=== PATIENT | male | born 1985 | race Caucasian/White ===

== ENCOUNTER 2021-06-04 16:04 | Outpatient (CLI) | payer BC, SELFPAY ==
--- NOTE | 2021-06-04 16:11 | CT_ITS ---
INDICATION: CERVICAL LYMPHADENOPATHY EXAMINATION: CT NECK WITH CONTRAST - CT Soft Tissue Neck W/ Contrast Injection TECHNIQUE: Helically acquired images were obtained of the neck following IV contrast. A radiation dose optimization technique was used for this scan. IV Contrast dosage and agent: 100 mL of [id number]. COMPARISON: None. FINDINGS: NASOPHARYNX: Unremarkable. SUPRAHYOID NECK: Unremarkable oropharynx, oral cavity, parapharyngeal space, and retropharyngeal space. INFRAHYOID NECK: Unremarkable larynx, hypopharynx, and supraglottis. THYROID: No focal lesions. SALIVARY GLANDS: Unremarkable. LYMPH NODES: No cervical or supraclavicular lymphadenopathy. VASCULAR STRUCTURES: Unremarkable. VISUALIZED PORTIONS OF THE ORBITS, PARANASAL SINUSES, MASTOID AIR CELLS AND SKULL BASE: Unremarkable. BONES: Multilevel mild degenerative endplate changes with mild uncovertebral joint arthropathy at C3-4 and C4-5. No facet arthropathy. THORACIC INLET: Clear lung apices. CT/Soft Tissue Neck WITH Contrast IMPRESSION: Negative CT Neck with contrast. Electronically Signed: Siva Danielle DO at 21:06 EST ,
== END 2021-06-04 23:59 | disposition home or self-care (01) ==
PROVIDERS: Referring Provider Otolaryngology; Visit Provider Otolaryngology
DX: R59.0 Localized enlarged lymph nodes (principal)
CPT/HCPCS: 70491; Q9967

== ENCOUNTER 2025-03-27 16:17 | Emergency (ER) | payer BC, SELFPAY ==
[2025-03-27] VITALS (11 sets, daily range): BP systolic 117–135; BP diastolic 65–81; PULSE 60–95; RESP 12–22; TEMP 36.2; O2SAT 97–100; BMI 28.4
--- NOTE | 2025-03-27 17:01 | EDS_ITS ---
HPI History of Present Illness Chief Complaint: Head Injury Narrative Narrative: Chief complaint and HPI: 40-year-old male with no significant past medical history presents for evaluation of head injury and paresthesias. Patient states about an hour prior to arrival he accidentally hit the top of his head on a metal overhang. States that he did not have LOC but states that his whole body went numb and that he was unable to move for several seconds. Not on blood thinners. Was able to ambulate after the incident. Patient now endorsing paresthesias of the bilateral hands to the elbows with hypersensitivity. He denies any numbness/tingling throughout the rest of the body. He denies any weakness. He does endorse eating a edible gummy prior to arrival. He denies any vision/hearing changes, neck pain, shortness of breath, chest pain, nausea, vomiting, back pain. Review of systems: See HPI Medications: As listed on the chart Allergies: As listed on the chart PFSH: Per chart Vital signs: As listed on the chart. Reviewed. Physical exam: Gen: A&O x3, NAD Head: Normocephalic, atraumatic Eyes: No sclera icterus, conjunctiva clear, PERRL, EOMI without pain ENT: TMs clear BL, moist mucous membranes, no swelling/lacerations/blood in the mouth or the nares, No nasal septal hematoma, no facial tenderness Neck: Trachea midline, nontender, full range of motion CV: RRR, no murmurs, no chest wall TTP Resp: Lungs CTA BL, no w/r/c GI: Abd soft, non-distended, non-tender, no r/r/g Musc: Full ROM of all the extremities, no deformity, strength + 5/5 in all extremities including lone lead lineman strength-patient originally did not want to do lone lead lineman strength as he states that it worsens his hypersensitivity in his hands, sensation intact with dull and pinprick sensation throughout, he endorses hypersensitivity in the bilateral hands and forearms with touch-states it makes his paresthesias worse and describes it as burning, radial/DP/PT pulses +2 bilaterally, no midline spinal tenderness, no bony step-off Skin: Warm, dry, intact Neuro: Alert, oriented, GCS 15 Psych: Cooperative PFSH PFSH Medical History no medical history Home Medications Medication Instructions Recorded Last Taken Type methylprednisolone 4 mg tablets in See Rx Instructions PO .COMPLEX 03/28/25 Unknown Rx a dose pack (Medrol (Acosta)) #21 tabs Allergy/AdvReac Type Severity Reaction Status Date / Time No Known Allergies Allergy Verified 03/27/25 16:20 Social History Smoking Status: Never smoker EXAM Physical Exam Const Vital Signs: 03/27/25 16:18 03/27/25 16:35 03/27/25 17:17 Temperature 97.2 F L Temperature Source Temporal Pulse Rate 85 95 Respiratory Rate 22 H 17 Respiratory Effort Normal Non-Labored Respiratory Depth Normal Respiratory Pattern Normal Blood Pressure 117/81 H 131/65 H Blood Pressure Mean 93 87 Pulse Ox 100 98 Oxygen Delivery Method Room Air Room Air Room Air 03/27/25 18:00 03/27/25 18:00 03/27/25 19:00 Temperature Temperature Source Pulse Rate 65 65 64 Respiratory Rate 12 12 13 Respiratory Effort Respiratory Depth Respiratory Pattern Blood Pressure 128/71 H 128/71 H 127/69 H Blood Pressure Mean 90 86 86 Pulse Ox 100 100 100 Oxygen Delivery Method Room Air 03/27/25 19:30 03/27/25 20:00 03/27/25 20:15 Temperature Temperature Source Pulse Rate 70 66 71 Respiratory Rate 17 12 14 Respiratory Effort Respiratory Depth Respiratory Pattern Blood Pressure 133/76 H 135/74 H 123/72 H Blood Pressure Mean 92 89 86 Pulse Ox 99 99 99 Oxygen Delivery Method 03/27/25 20:30 03/27/25 20:45 03/27/25 21:00 Temperature Temperature Source Pulse Rate 64 65 70 Respiratory Rate 13 14 12 Respiratory Effort Respiratory Depth Respiratory Pattern Blood Pressure 125/74 H 133/79 H 135/78 H Blood Pressure Mean 87 96 92 Pulse Ox 98 97 98 Oxygen Delivery Method 03/27/25 23:22 Temperature Temperature Source Pulse Rate 60 Respiratory Rate 12 Respiratory Effort Respiratory Depth Respiratory Pattern Blood Pressure 134/75 H Blood Pressure Mean 94 Pulse Ox 100 Oxygen Delivery Method Room Air MDM MDM MDM Narrative Medical decision making narrative: 40-year-old male with no significant past medical history presents for evaluation of head injury and paresthesias. Patient states about an hour prior to arrival he accidentally hit the top of his head on a metal overhang. States that he did not have LOC but states that his whole body went numb and that he was unable to move for several seconds. Not on blood thinners. Was able to ambulate after the incident. Patient now endorsing paresthesias of the bilateral hands to the elbows with hypersensitivity. He denies any numbness/tingling throughout the rest of the body. He denies any weakness. He does endorse eating a edible gummy prior to arrival. Differential diagnosis includes but is not limited to intracranial bleed, fracture, contusion, concussion, arterial dissection, electrolyte abnormality, intoxication. Laboratory workup will be obtained including magnesium as well as urine drug screen. Will obtain imaging of the head and neck. CT head, cervical spine, CTA head and neck without any acute traumatic injury or abnormality. CBC with mild leukocytosis 11.3. No anemia. BMP unremarkable. Magnesium unremarkable. Urine drug screen positive for cannabis. Alcohol level unremarkable. On reevaluation, patient's clinical exam has not changed. Still endorsing the paresthesias and hypersensitivity therefore will reach out to neurosurgery at [facility] [place]. It was a while before we heard back from [facility] therefore I reached out to [facility]. I was able to discuss the patient with neurosurgeon, Dr. Porter. Recommended MRIs be performed. This was ordered. They will need to be called in. MRI of the cervical spine shows no traumatic injury to the cervical spine. Mild to moderate disc narrowing is noted throughout the cervical spine, moderate at C3-4. Endplate edema is noted at C3- 4. The cervical cord is normal in size and signal. CT of the thoracic spine shows small posterior disc protrusions at T7-8, T8-9, T9-10, and T11-12. Mild effacement of the ventral aspect of the cord at T9-10 and T11-12. Given findings, Dr. Porter with neurosurgery was consulted. He reviewed the imaging and patient was discussed. Recommended 60 mg steroids now and discharged home on Medrol Dosepak. Call his office on Monday. Patient confirmed understand the plan. Patient stable to discharge home. Educated on not combining ibuprofen with steroids. Okay for Tylenol. Return precautions explained. Impression: 1. Bilateral upper extremity paresthesias 2. Bilateral upper extremity hypersensitivity 3. Closed head injury 4. Chronic cervical and thoracic spinal stenosis Lab Data Labs: Laboratory Results - last 24 hr 03/27/25 03/27/25 17:05 17:15 WBC 11.3 H RBC 5.05 Hgb 14.9 Hct 43.7 MCV 86.5 MCH 29.5 MCHC 34.1 RDW Std Deviation 36.8 RDW Coeff of Alejandro 11.7 Plt Count 212 MPV 9.3 Immature Gran % (Auto) 0.400 Neut % (Auto) 75.9 H Lymph % (Auto) 16.5 L [place] % (Auto) 5.1 Eos % (Auto) 1.5 Baso % (Auto) 0.6 Absolute Neuts (auto) 8.6 H Absolute Lymphs (auto) 1.87 Nucleated RBC % 0 Sodium 138 Potassium 3.4 Chloride 101 Carbon Dioxide 24.5 Anion Gap 13 BUN 11 Creatinine 0.99 Estim Creat Clear Calc 114.08 Est GFR (MDRD) Non-Af 100 BUN/Creatinine Ratio 10.7 Glucose 136 H Calcium 9.1 Magnesium 1.5 Urine Opiates Screen NEGATIVE U Buprenorphine Qual NEGATIVE Ur Oxycodone Screen NEGATIVE Urine Methadone Screen NEGATIVE Urine Fentanyl Screen NEGATIVE Ur Barbiturates Screen NEGATIVE Ur Phencyclidine Scrn NEGATIVE Ur Amphetamines Screen NEGATIVE U Benzodiazepines Scrn NEGATIVE Urine Cocaine Screen NEGATIVE U Cannabinoids Screen PRESUMPTIVE POSITIVE Ethyl Alcohol < 10.1 Radiography Diagnostic Testing: Clinical Impression(s) from Imaging Studies Brain CT 03/27/25 17:25 IMPRESSION: 1. No intracranial hemorrhage. No mass effect or midline shift. 2. No evidence of acute cervical spine fracture or malalignment. Reading Location: [facility] Cervical Spine CT 03/27/25 17:25 IMPRESSION: 1. No intracranial hemorrhage. No mass effect or midline shift. 2. No evidence of acute cervical spine fracture or malalignment. Reading Location: [facility] Head/Neck CTA 03/27/25 17:25 IMPRESSION: Normal CTA of the head and neck. Reading Location: [id number] Cervical Spine MRI 03/27/25 20:57 IMPRESSION: No MR evidence of acute traumatic injury to the cervical spine. Moderate to severe cervical spondylosis, as described above. Reading Location: [id number] Thoracic Spine MRI 03/27/25 20:57 IMPRESSION: Small posterior disc protrusions at T7-8, T8-9, T9-10, and T11-12. Mild effacement of the ventral aspect of the cord at T9-10 and T11-12. Reading Location: [id number] Discharge Plan Triage Chief Complaint: Head Injury ED Provider: Oscar Dhillon Dx/Rx/DC Orders Prescriptions: New methylprednisolone [Medrol (Acosta)] 4 mg tablets,dose pack See Rx Instructions .ROUTE .COMPLEX Qty: 21 0RF Rx Instructions: for 6 days Primary Care Provider: Care Physician,No Primary Referrals: Care Physician,No Primary [Primary Care Provider, Medical] Print Language: Malawian
--- OUTSIDE RECORDS SUMMARY | 2025-03-27 17:02 | XMS RPT_ITS | CCD ---
Author Organization [facility] Care Team Providers Care [employer] Name Role Phone Older MORPHOLOGIST.HOSPICE BEREAVEMENT COORDINATOR, Mary Primary Care Provider Milad Richter MD Primary Care Provider Milad Richter MD Primary Care Provider MILAD RICHTER Primary Care Unavailable LEEANN KING Attending Unavailable LEEANN KING Primary Care Unavailable LEEANN KING Admrama Unavailable LEEANN KING Unavailable LEEANN KING Primary Care Unavailable LEEANN KING Admitting Unavailable Medications Current Medications Medication Drug Class(es) Dates Sig (Normalized) Sig (Original) predniSONE 10 mg oral tablet (2 sources) Start: 03-21-2022 End: 04-02-2022 predniSONE (DELTASONE) 10 mg tablet Take 4 tabs daily x 3 days, then 3 tabs x 3 days, 2 tabs x 3 days, then 1 tab x3 days with food. 30 tablet 0 03/21/2022 04/02/2022 Active Comment on above: Take 4 tabs daily x 3 days, then 3 tabs x 3 days, 2 tabs x 3 days, then 1 tab x3 days with food. Completed/Discontinued Medications Medication Drug Class(es) Dates Sig (Normalized) Sig (Original) acetaminophen 325 mg oral tablet (2 sources) take 2 tablets by mouth every six hours as needed acetaminophen (TYLENOL) 325 mg tablet Take 650 mg by mouth every 6 hours as needed. 0 Active Comment on above: Take 650 mg by mouth every 6 hours as needed. omeprazole 20 mg delayed release oral tablet (5 sources) Proton Pump Inhibitor End: 06-25-2022 take 1 tablet by mouth once daily Omeprazole Magnesium 20 mg tablet Take 20 mg by mouth once daily. 06/25/2022 Discontinued Comment on above: Take 20 mg by mouth once daily. sertraline 50 mg oral tablet (5 sources) Serotonin Reuptake Inhibitor Start: 05-13-2022 End: 06-25-2022 take 1 tablet by mouth once daily sertraline (ZOLOFT) 50 mg tablet Take 1 tablet by mouth once daily. 30 tablet 2 05/13/2022 06/25/2022 Discontinued (Discontinued by Patient) Start: 04-11-2022 End: 05-13-2022 take 1 tablet by mouth once daily sertraline (ZOLOFT) 25 mg tablet Take 1 tablet by mouth once daily. 30 tablet 0 04/11/2022 05/13/2022 Discontinued Comment on above: Take 1 tablet by beata th once daily. Problems Active Problems Problem Classification Problem Date Documented Date Episodic/Chronic Anxiety disorders (1 source) Anxiety disorder; Translations: [Anxiety disorder, unspecified] Chronic Esophageal disorders (1 source) Gastro-esophageal reflux disease without esophagitis; Translations: [Gastro-esophageal reflux disease without esophagitis] Onset: 03-27-2024 Chronic Headache; including migraine (1 source) Headache; Translations: [Headaches] Episodic Immunizations and screening for infectious disease (3 sources) Patient encounter status; Translations: [Encounter for screening for human immunodeficiency virus [HIV]] Episodic Lymphadenitis (3 sources) Localized enlarged lymph nodes; Translations: [Localized enlarged lymph nodes] Onset: 02-13-2024 Episodic Mood disorders (1 source) Depressive disorder; Translations: [Depressive disorder] Chronic Nonspecific chest pain (3 sources) Atypical chest pain; Translations: [Other chest pain] Episodic Other ear and sense organ disorders (1 source) Otalgia, left ear; Translations: [Otalgia, unspecified] Episodic Other nutritional; endocrine; and metabolic disorders (1 source) Overweight; Translations: [Overweight] Onset: 03-27-2024 Episodic Other screening for suspected conditions (not mental disorders or infectious disease) (2 sources) Encounter for screening for other metabolic disorders; Translations: [Encounter for screening for lipoid disorders] Onset: 03-27-2024 Episodic Residual codes; unclassified (1 source) Other specified personal risk factors, not elsewhere classified; Translations: [Other specified personal risk factors, not elsewhere classified] Onset: 02-13-2024 Episodic Past or Other Problems Problem Classification Problem Date Documented Da te Episodic/Chronic Disorders of teeth and jaw (14 sources) Jaw pain; Translations: [Jaw pain] Onset: 03-23-2022 Episodic Spondylosis; intervertebral disc disorders; other back problems (15 sources) Neck pain; Translations: [Cervicalgia] Onset: 03-23-2022 Episodic Results Test Name Value Interpretation Reference Range Facil ity CBC + DIFFon 03-27-2024 Baso # 0.02 x10EE3/UL Normal 0.00 - 0.10 [facility] Comment on above: Performed By: #### 2 52354 #### [facility],[address] [place] [address] Basophils/100 WBC (Bld) 0.3 % Normal 0.0 - 2.0 [facility] Comment on above: Performed By: #### 2 89881 #### [facility],[address] [place] [address] CBC + DIFF Normal [facility] Comment on above: Result Comment: CBC- COMPLETE BLOOD COUNT Performed By: #### 2 37747 #### [facility],[address] [place] [address] EO # 0.34 x10EE3/UL Normal 0.00 - 0.50 [facility] Comment on above: Performed By: #### 2 58633 #### [facility],[address] [place] [address] Eosinophils/100 WBC (Bld) 5.4 % Normal 0.0 - 7.0 [facility] Comment on above: Performed By: #### 2 25434 #### [facility],[address] [place] [address] Erythrocyte distribution width (RBC) [Ratio] 12.8 % Normal 12.0 - 15.6 [facility] Comment on above: Performed By: #### 2 80186 #### [facility],[address] [place] [address] Hematocrit (Bld) [Volume fraction] 48.0 % Normal 40.0 - 52.0 [facility] Comment on above: Performed By: #### 2 88562 #### [facility],[address] [place] [address] 76910 Hemoglobin (Bld) [Mass/Vol] 15.5 g/dL Normal 13.0 - 17.5 [facility] Comment on above: Performed By: #### 2 22230 #### [facility],[address] [place] [address] 43897 Lymph # 2.17 x10EE3/UL Normal 0.80 - 2.80 [facility] Comment on above: Performed By: #### 2 79824 #### [facility],[address] [place] [address] 76810 Lymphocytes/100 WBC (Bld) 34.0 % Normal 20.0 - 45.0 [facility] Comment on above: Performed By: #### 2 03780 #### [facility],[address] [place] [address] 70895 MANUAL DIFF N/A Normal [facility] Comment on above: Performed By: #### 2 67495 #### [facility],[address] [place] [address] 44273 MCH (RBC) [Entitic mass] 29 pg Normal 27 - 33 [facility] Comment on above: Performed By: #### 2 57537 #### [facility],[address] [place] [address] 18991 MCHC 32 X10 3 Normal 32 - 36 [facility] Comment on above: Performed By: #### 2 50330 #### [facility],[address] [place] [address] 66365 MCV (RBC) [Entitic vol] 89 fL Normal 81 - 98 [facility] Comment on above: Performed By: #### 2 16265 #### [facility],[address] [place] [address] 69001 [place] # 0.39 x10EE3/UL Normal 0.20 - 1.00 [facility] Comment on above: Performed By: #### 2 49162 #### [facility],[address] [place] [address] 47102 MONOS % 6.2 % Normal 0.0 - 10.0 [facility] Comment on above: Performed By: #### 2 82905 #### [facility],[address] [place] [address] 64329 Morphology Charly (Bld) [Interp] N/A Normal [facility] Comment on above: Performed By: #### 2 00932 #### [facility],[address] [place] [address] 45184 Neut # 3.46 x10EE3/UL Normal 1.50 - 7.10 [facility] Comment on above: Performed By: #### 2 74494 #### [facility],[address] [place] [address] 15792 Neutrophils/100 WBC (Bld) 54.2 % Normal 46.0 - 76.0 [facility] Comment on above: Performed By: #### 2 44102 #### [facility],[address] [place] [address] 71662 PLATELET 206 x10EE3/UL Normal 150 - 450 [facility] Comment on above: Performed By: #### 2 25150 #### [facility],[address] [place] [address] 83230 Platelet mean volume (Bld) [Entitic vol] 7.5 fL Normal 6.4 - 10.5 [facility] Comment on above: Result Comment: AUTO MATED DIFFERENTIAL Performed By: #### 2 92929 #### [facility],[address] [place] [address] 54508 RBC 5.38 x 10EE6/UL Normal 4.50 - 6.00 [facility] Comment on above: Performed By: #### 2 53066 #### [facility],[address] [place] [address] 41553 WBC 6.4 x 10EE3/UL Normal 4.5 - 10.8 [facility] Comment on above: Performed By: #### 2 47702 #### [facility],[address] [place] [address] 07030 CMP with eGFRon 03-27-2024 AGE 39 years Normal [facility] Comment on above: Performed By: #### 2 26612 #### [facility],[address] [place] [address] 26356 Albumin [Mass/Vol] 4.0 g/dL Normal 3.4 - 5.0 [facility] Comment on above: Performed By: #### 2 29040 #### [facility],[address] [place] [address] 92931 Albumin/Globulin [Mass ratio] 1.6 {ratio} Normal 0.9 - 1.6 [facility] Comment on above: Performed By: #### 2 70228 #### [facility],[address] [place] [address] 78531 ALK PHOS 80 U/L Normal 46 - 116 [facility] Comment on above: Performed By: #### 2 46962 #### [facility],[address] [place] [address] 01035 ALT [Catalytic activity/Vol] 31 U/L Normal 16 - 63 [facility] Comment on above: Performed By: #### 2 53837 #### [facility],[address] [place] [address] 24267 Anion gap [Moles/Vol] 15 mmol/L Normal 10 - 20 [facility] Comment on above: Performed By: #### 2 87410 #### [facility],[address] [place] [address] 57990 AST [Catalytic activity/Vol] 20 U/L Normal 15 - 37 [facility] Comment on above: Performed By: #### 2 95017 #### [facility],[address] [place] [address] 87629 B/C RATIO 13 ratio Normal 0 - 30 [facility] Comment on above: Performed By: #### 2 86068 #### [facility],[address] [place] [address] 10327 Bilirubin [Mass/Vol] 0.3 mg/dL Normal 0.2 - 1.0 [facility] Comment on above: Performed By: #### 2 32217 #### [facility],[address] [place] [address] 60860 Calcium [Mass/Vol] 8.8 mg/dL Normal 8.5 - 10.1 [facility] Comment on above: Performed By: #### 2 78909 #### [facility],[address] [place] [address] 23344 Chloride [Moles/Vol] 104 mmol/L Normal 98 - 107 [facility] Comment on above: Performed By: #### 2 16606 #### [facility],[address] [place] [address] 34196 CMP with eGFR Normal [facility] Comment on above: Result Comment: COMP REHENSIVE METABOLIC PANEL Performed By: #### 2 80475 #### [facility],[address] [place] [address] 72641 CO2 [Moles/Vol] 28.5 mmol/L Normal 21.0 - 32.0 [facility] Comment on above: Performed By: #### 2 30139 #### [facility],[address] [place] [address] 94020 Creatinine [Mass/Vol] 1.20 mg/dL Normal 0.70 - 1.30 [facility] Comment on above: Performed By: #### 2 71577 #### [facility],[address] [place] [address] 12556 GFR/1.73 sq M.predicted among non-blacks MDRD (S/P/Bld) [Vol rate/Area] mL/min/{1.73_m2} Normal 60 - 999 [facility] Comment on above: Performed By: #### 2 59882 #### [facility],[address] [place], [place] [address] Result Comment: ACCO RDING TO THE NATIONAL KIDNEY DISEASE EDUCATION PROGRAM(NKDE), A NORMAL eGFR IS A VALUE GREATER THAN OR EQUAL TO 60 ML/MIN/1.73 SQ METERS. CHRONIC KIDNEY DISEASE: <60mL/MIN/1.73 SQ METERS KIDNEY FAILURE: <15mL/MIN/1.73 SQ METERS THIS TEST SHOULD ONLY BE USED FOR PATIENTS 18 YEARS OF AGE AND OLDER. Globulin (S) [Mass/Vol] 2.5 g/dL Normal 1.5 - 3.8 [facility] Comment on above: Performed By: #### 2 75760 #### [place] [address] Glucose [Mass/Vol] 102 mg/dL Normal 74 - 106 [facility] Comment on above: Performed By: #### 2 63291 #### [place] [address] Potassium [Moles/Vol] 4.0 mmol/L Normal 3.5 - 5.1 [facility] Comment on above: Performed By: #### 2 38793 #### [place] [id number] Protein [Mass/Vol] 6.5 g/dL Normal 6.4 - 8.2 [facility] Comment on above: Performed By: #### 2 39225 #### [facility],[address] [place] [address] 82093 Sodium [Moles/Vol] 143 mmol/L Normal 136 - 145 [facility] Comment on above: Performed By: #### 2 82324 #### [address] [address] Urea nitrogen [Mass/Vol] 16 mg/dL Normal 7 - 18 [facility] Comment on above: Performed By: #### 2 26158 #### [address] [address] LIPID PROFILEon 03-27-2024 Cholesterol [Mass/Vol] 247 mg/dL High 0 - 240 [facility] Comment on above: Performed By: #### 2 01228 #### [facility],[address] [place] [address] 40482 Cholesterol in HDL [Mass/Vol] 64 mg/dL High 40 - 60 [facility] Comment on above: Performed By: #### 2 95693 #### [facility],[address] [place] [address] 94154 Cholesterol in LDL [Mass/Vol] 156 mg/dL High 0 - 129 [facility] Comment on above: Performed By: #### 2 41092 #### [facility],[address] [place] [address] 59572 Cholesterol.total/C holesterol in HDL [Mass ratio] 3.9 {ratio} Normal 0.0 - 5.0 [facility] Comment on above: Performed By: #### 2 38448 #### [facility],[address] [place] [address] 81347 Lipid 1996 panel Normal [facility] Comment on above: Result Comment: LIPI D PROFILE Performed By: #### 2 15559 #### [facility],[address] [place] [address] 42434 Triglyceride [Mass/Vol] 133 mg/dL Normal 0 - 150 [facility] Comment on above: Performed By: #### 2 71546 #### [facility],[address] [place] [address] 91814 XR CERVICAL 4V AP/LAT/OBLon 02-19-2024 XR CERVICAL 4V AP/LAT/OBL * * *Final Report* * * DATE OF EXAM: Feb 19 2024 6:38PM WOX 5311 - XR CERVICAL 4V AP/LAT/OBL / PROCEDURE REASON: M54.12 * * * * Physician Interpretation * * * * EXAM TITLE: XR CERVICAL 4V AP/LAT/OBL EXAM DATE/TIME: 02/19/2024 6:38 PM COMPARISON: None. CLINICAL INDICATION/HISTORY: Pain. TECHNIQUE: AP, lateral and oblique views of the cervical spine are presented. FINDINGS: No fractures or subluxations are noted. Questionable C3-4 and C4-5 mild disc space narrowing. There is mild osteophyte formation. The neural foramina are grossly patent. The prevertebral soft tissues are normal. IMPRESSION: Cervical spine degenerative changes as described above. Spray Mixer: COURTNEY Transcribe Date/Time: Feb 21 2024 11:33A Dictated by : NILA CORONEL MD This examination was interpreted and the report reviewed and electronically signed by: NILA CORONEL MD on Feb 21 2024 11:35AM EST [id number] Normal [facility] XR LUMBAR PARS 4V AP/LAT/OBL X2on 02-19-2024 XR LUMBAR PARS 4V AP/LAT/OBL X2 * * *Final Report* * * DATE OF EXAM: Feb 19 2024 6:38PM WOX 5233 - XR LUMBAR PARS 4V AP/LAT/OBL X2 / PROCEDURE REASON: M54.12 * * * * Physician Interpretation * * * * EXAM TITLE: XR LUMBAR PARS 4V AP/LAT/OBL X2 EXAM DATE/TIME: 02/19/2024 6:38 PM COMPARISON: None. CLINICAL INDICATION/HISTORY: Low back pain TECHNIQUE: AP, lateral and cone down lateral views of the lumbar spine are presented. FINDINGS: There are five [id number] lumbar vertebrae. No fracture or subluxations are noted. The disc spaces are well preserved. There is mild osteophyte formation. Kissing spine seen on lateral view. IMPRESSION: Lumbar spine mild degenerative changes. Spray Mixer: [facility] HOSPITALTrixie Transcribe Date/Time: Feb 20 2024 4:10P Dictated by : NILA CORONEL MD This examination was interpreted and the report reviewed and electronically signed by: NILA CORONEL MD on Feb 20 2024 4:11PM EST [id number] Normal [facility] LYME EARLY (SIGNS/SYMP <=30 DAYS) [CCL]on 02-15-2024 RESULT CRITICAL? NO Normal [facility] Comment on above: Performed By: #### 2 35438 #### [facility],[address] [place], [place] [id number] Lyme IgG IgM Ab Negative Normal Negative [facility] Comment on above: Result Comment: Rece nt infection with B. burgdorferi sensu lato cannot be excluded if the specimen collected within four weeks after the onset of signs and symptoms or within six weeks after a known tick exposure. Clinical and epidemiological correlation is required. [facility] [address] [place] [address] Jerry Mcrae III, M.D. [id number] Performed By: #### 2 51197 #### [facility],[address] [place], [place] [address] B. burgdorferi IgG and IgM p agustina (S)on 02-13-2024 B. burgdorferi IgG+IgM Qn (S) Negative Normal Negative [facility] Comment on above: Order Comment: Speci men Type: BLOOD SPECIMEN Ordering Facility: [facility] Address: [address] [place] [address] Result Comment: Rece nt infection with B. burgdorferi sensu lato cannot be excluded if the specimen collected within four weeks after the onset of signs and symptoms or within six weeks after a known tick exposure. Clinical and epidemiological correlation is required. Performed By: #### 3 4942-3 #### [facility] CLIA [id number] [address] [place], [place] [address] [place] [id number] [place] XR CHEST 2V FRONTAL/LATon [facility] XR Chest PA and Lateralon IMPRESSION: No acute radiographic abnormality. Spray Mixer: PSCB Transcribe Date/Time: Jun 25 2022 1:33P Dictated by : KELTON GALLEGOS MD This examination was interpreted and the report reviewed and electronically signed by: KELTON GALLEGOS MD on Jun 25 2022 1:33PM [facility] DIVISION OF RADIOLOGY * * *Final Report* * * DATE OF EXAM: Jun 25 2022 10:52AM WOX 5291 - XR CHEST 2V FRONTAL/LAT / PROCEDURE REASON: Atypical chest pain * * * * Physician Interpretation * * * * EXAMINATION: CHEST RADIOGRAPH (2 VIEW FRONTAL & LATERAL) CLINICAL HISTORY: Atypical chest pain MQ: XC2_6 EXAM DATE/TIME: 06/25/2022 10:52 AM COMPARISON: No relevant prior studies available. RESULT: Lines, tubes, and devices: None. Lungs and pleura: No consolidation. No lung mass. No pleural effusion. No pneumothorax. Cardiomediastinal silhouette: Normal cardiomediastinal silhouette. Bones and soft tissues: Unremarkable. DIVISION OF RADIOLOGY Provider, [facility] - 06/25/2022 * * *Final Report* * * DATE OF EXAM: Jun 25 2022 10:52AM WOX 5291 - XR CHEST 2V FRONTAL/LAT / PROCEDURE REASON: Atypical chest pain * * * * Physician Interpretation * * * * EXAMINATION: CHEST RADIOGRAPH (2 VIEW FRONTAL & LATERAL) CLINICAL HISTORY: Atypical chest pain MQ: XC2_6 EXAM DATE/TIME: 06/25/2022 10:52 AM COMPARISON: No relevant prior studies available. RESULT: Lines, tubes, and devices: None. Lungs and pleura: No consolidation. No lung mass. No pleural effusion. No pneumothorax. Cardiomediastinal silhouette: Normal cardiomediastinal silhouette. Bones and soft tissues: Unremarkable. IMPRESSION IMPRESSION: No acute radiographic abnormality. Spray Mixer: PSCB Transcribe Date/Time: Jun 25 2022 1:33P Dictated by : KELTON GALLEGOS MD This examination was interpreted and the report reviewed and electronically signed by: KELTON GALLEGOS MD on Jun 25 2022 1:33PM EST [facility] Radiology Study observation (narrative) [facility] XR Chest PA and LateralOrder ed By: [facility] Provider on 06-25-2022 [facility] C-REACTIVE PROTEIN (CRP)on 05-21-2021 CRP [Mass/Vol] <0.9 mg/dL [facility] Comprehensive metabolic 2000 panelon 03-21-2022 Albumin [Mass/Vol] 5.0 g/dL High 3.9 - 4.9 g/dL Cl [facility] ALP [Catalytic activity/Vol] 50 U/L 38 - 113 U/L [facility] ALT [Catalytic activity/Vol] 16 U/L 10 - 54 U/L [facility] Anion gap [Moles/Vol] 10 mmol/L 9 - 18 mmol/L [facility] AST [Catalytic activity/Vol] 22 U/L 14 - 40 U/L [facility] Bilirubin [Mass/Vol] 0.9 mg/dL 0.2 - 1.3 mg/dL [facility] Calcium [Mass/Vol] 9.8 mg/dL 8.5 - 10.2 mg/dL [facility] Chloride [Moles/Vol] 104 mmol/L 97 - 105 mmol/L [facility] CO2 [Moles/Vol] 26 mmol/L 22 - 30 mmol/L [facility] Creatinine [Mass/Vol] 0.99 mg/dL 0.73 - 1.22 mg/dL [facility] Estimated Glomerular Filtration Rate 102 mL/min/1.73m >=60 mL/min/1.73m [facility] Glucose [Mass/Vol] 103 mg/dL High 74 - 99 mg/dL [facility] Potassium [Moles/Vol] 3.9 mmol/L 3.7 - 5.1 mmol/L [facility] Protein [Mass/Vol] 7.2 g/dL 6.3 - 8.0 g/dL Cl [facility] Sodium [Moles/Vol] 140 mmol/L 136 - 144 mmol/L [facility] Urea nitrogen [Mass/Vol] 12 mg/dL 9 - 24 mg/dL [facility] ESR Westergren method (Bld) [Velocity]on 03-21-2022 ESR (Bld) [Velocity] 2 mm/h 0 - 15 mm/hr [facility] HEP C AB IA W/CONF SCRNon HCV Ab Ql (S) Negative Negative [facility] HIV 1+2 Ab IA Qlon 2 HIV 1 and 2 Ab IA.rapid Nom [facility] HIV 1+2 Ab+HIV1 p24 Ag IA Ql Non-Reactive Nonreactive [facility] HIV Interpretation [facility] Lipid 1996 panelon 2 Cholesterol [Mass/Vol] 219 mg/dL High <200 mg/dL [facility] Cholesterol in HDL [Mass/Vol] 50 mg/dL >39 mg/dL [facility] Cholesterol in LDL [Mass/Vol] 152 mg/dL High <100 mg/dL [facility] Cholesterol in LDL/Cholesterol in HDL [Mass ratio] 3.04 {ratio} High <2.54 [facility] Cholesterol in VLDL [Mass/Vol] 17 mg/dL <30 mg/dL [facility] Cholesterol non HDL [Mass/Vol] 169 mg/dL High <130 mg/dL [facility] Cholesterol.total/C holesterol in HDL [Mass ratio] 4.38 {ratio} <5.10 [facility] Fasting Time 10 hrs [facility] Triglyceride [Mass/Vol] 83 mg/dL <150 mg/dL [facility] Soft Tissue Neck WITH Contra ston 06-04-2021 Soft Tissue Neck WITH Contrast [facility] Services [address] [place] [address] Soft Tissue Neck WITH Contrast MR#: [id number] Acct: [id number] Name: DEION TABARES Rep #: [id number] : 1985 M 36 From: Siva Danielle DO PCP: Care Physician,No Primary Status: REG CLI Study: Soft Tissue Neck WITH Contrast Date of Exam: 0 06/04/21 Exam# [id number] Ordering Dr: Kole Weinstein MD INDICATION: CERVICAL LYMPHADENOPATHY EXAMINATION: CT NECK WITH CONTRAST - CT Soft Tissue Neck W/ Contrast Injection TECHNIQUE: Helically acquired images were obtained of the neck following IV contrast. A radiation dose optimization technique was used for this scan. IV Contrast dosage and agent: 100 mL of [id number]. COMPARISON: None. FINDINGS: NASOPHARYNX: Unremarkable. SUPRAHYOID NECK: Unremarkable oropharynx, oral cavity, parapharyngeal space, and retropharyngeal space. INFRAHYOID NECK: Unremarkable larynx, hypopharynx, and supraglottis. THYROID: No focal lesions. SALIVARY GLANDS: Unremarkable. LYMPH NODES: No cervical or supraclavicular lymphadenopathy. VASCULAR STRUCTURES: Unremarkable. VISUALIZED PORTIONS OF THE ORBITS, PARANASAL SINUSES, MASTOID AIR CELLS AND SKULL BASE: Unremarkable. BONES: Multilevel mild degenerative endplate changes with mild uncovertebral joint arthropathy at C3-4 and C4-5. No facet arthropathy. THORACIC INLET: Clear lung apices. CT/Soft Tissue Neck WITH Contrast IMPRESSION: Negative CT Neck with contrast. Electronically Signed: Siva Danielle DO at 21:06 EST , CC: Dr. Kole Weinstein MD; No Primary Care Physician Spray Mixer: Signed Normal [facility] Vital Signs Date Time Vital Sign Value Performing Clinician Faci lity 06-25-2022 10:11-0500 Body temperature 96.8 [degF] Milad Richter MD Work Phone: [facility] 06-25-2022 10:11-0500 Body weight 83.46 kg Milad Richter MD Work Phone: [facility] 06-25-2022 10:11-0500 Diastolic blood pressure 68 mm[Hg] Milad Richter MD Work Phone: [facility] 06-25-2022 10:11-0500 Heart rate 88 /min Milad Richter MD Work Phone: [facility] 06-25-2022 10:11-0500 Respiratory rate 18 /min Milad Richter MD Work Phone: [facility] 06-25-2022 10:11-0500 SaO2% (BldA) [Mass fraction] 99 % Milad Richter MD Work Phone: [facility] 06-25-2022 10:11-0500 Systolic blood pressure 112 mm[Hg] Milad Richter MD Work Phone: [facility] 05-13-2022 13:15-0500 Body weight 84.37 kg Mary Older MORPHOLOGIST.HOSPICE BEREAVEMENT COORDINATOR Work Phone: [facility] 05-13-2022 13:15-0500 Diastolic blood pressure 74 mm[Hg] Mary Older MORPHOLOGIST.HOSPICE BEREAVEMENT COORDINATOR Work Phone: [facility] 05-13-2022 13:15-0500 Heart rate 59 /min Mary Older MORPHOLOGIST.HOSPICE BEREAVEMENT COORDINATOR Work Phone: [facility] 05-13-2022 13:15-0500 Respiratory rate 16 /min Mary Older MORPHOLOGIST.HOSPICE BEREAVEMENT COORDINATOR Work Phone: [facility] 05-13-2022 13:15-0500 Systolic blood pressure 119 mm[Hg] Mary Older MORPHOLOGIST.HOSPICE BEREAVEMENT COORDINATOR Work Phone: [facility] 03-21-2022 08:18-0500 Body height 175.3 cm Mary Older MORPHOLOGIST.HOSPICE BEREAVEMENT COORDINATOR Work Phone: [facility] 03-21-2022 08:18-0500 Body weight 85.28 kg Mary Older MORPHOLOGIST.HOSPICE BEREAVEMENT COORDINATOR Work Phone: [facility] 03-21-2022 08:18-0500 Diastolic blood pressure 62 mm[Hg] Mary Older MORPHOLOGIST.HOSPICE BEREAVEMENT COORDINATOR Work Phone: [facility] 03-21-2022 08:18-0500 Heart rate 68 /min Mary Older MORPHOLOGIST.HOSPICE BEREAVEMENT COORDINATOR Work Phone: [facility] 03-21-2022 08:18-0500 Respiratory rate 16 /min Mary Older MORPHOLOGIST.HOSPICE BEREAVEMENT COORDINATOR Work Phone: [facility] 03-21-2022 08:18-0500 SaO2% (BldA) [Mass fraction] 99 % Mary Older MORPHOLOGIST.HOSPICE BEREAVEMENT COORDINATOR Work Phone: [facility] 03-21-2022 08:18-0500 Systolic blood pressure 104 mm[Hg] Mary Older MORPHOLOGIST.HOSPICE BEREAVEMENT COORDINATOR Work Phone: [facility] Encounters Encounter Date Encounter Type Care Provider Facility Start: 03-27-2024 End: 03-27-2024 ambulatory [facility] Start: 03-27-2024 Encounter for genera l adult medical examination without abnormal findings [facility] Start: 02-19-2024 End: 02-19-2024 ambulatory MILDA RICHTER Facility:[facility] Start: 02-19-2024 End: 02-19-2024 Subsequent hospital visit by physician Jonny Maria [facility] Work Phone: Radiology Start: 02-13-2024 End: 02-13-2024 ambulatory [facility] Start: 11-17-2022 End: 11-17-2022 ambulatory Venkata Chavez [facility] Comment on above: Neck pain (Primary D x) Start: 08-25-2022 End: 08-25-2022 ambulatory Venkata Chavez [facility] Comment on above: Neck pain (Primary D x); Jaw pain Start: 06-25-2022 End: 06-25-2022 Subsequent hospital visit by physician Xr [facility] Work Phone: Radiology Comment on above: Atypical chest pain [R07.89] Start: 06-25-2022 End: 06-25-2022 Patient encounter procedure Milad Richter MD Work Phone: [facility] Comment on above: Atypical chest pain (Primary Dx) Start: 05-13-2022 End: 05-13-2022 Patient encounter procedure Mary Older MORPHOLOGIST.HOSPICE BEREAVEMENT COORDINATOR Work Phone: [facility] Comment on above: Atypical chest pain (Primary Dx); Anxiety disorder, unspecified type; Depressive disorder Start: 05-05-2022 End: 05-05-2022 ambulatory Venkata Scott [facility] Comment on above: Neck pain (Primary D x); Jaw pain Start: 04-14-2022 End: 04-14-2022 ambulatory Venkata Chavez [facility] Comment on above: Neck pain (Primary D x); Jaw pain Start: 03-23-2022 End: 03-23-2022 ambulatory Venkata Scott [facility] Comment on above: Jaw pain (Primary Dx ); Neck pain Start: 03-21-2022 End: 03-21-2022 Patient encounter procedure Mary Older MORPHOLOGIST.HOSPICE BEREAVEMENT COORDINATOR Work Phone: [facility] Comment on above: Neck pain (Primary D x); Headaches; Jaw pain; Left ear pain; Screening for HIV (human immunodeficiency virus); Special screening examination for viral disease; Screening for lipid disorders Procedures Date Procedure Procedure Detail Performing Clinician Start: 06-25-2022 Radiologic exam ches t 2 views Milad Richter MD Work Phone: Start: 05-13-2022 Ecg routine ecg w/le ast 12 lds i&r only [facility] Provider Start: 03-21-2022 Lipid 1996 panel - S kira or Plasma [facility] Work Phone: Plan of Treatment Date Care Activity Detail Author Start: 03-21-2027 Lipid panel Lipid Screening [facility] Start: 03-21-2027 LIPID SCREEN LIPID SCREEN [facility] Start: 12-31-2023 Covid-19 Vaccine () Covid-19 Vaccine () [facility] Start: 12-31-2023 Influenza vaccination Influenza Vacc ine (#1) [facility] Start: 03-21-2023 COVID-19 VACCINE (#1) COVID-19 VACCI NE (#1) [facility] Comment on above: Postponed from 07/19 (Declined at this time) Start: 03-21-2023 HEPATITIS B (1 of 3 - 3-dose series) [facility] Comment on above: Postponed from 01/19 (Declined at this time) Postponed from 01/18 (Declined at this time) Start: 12-30-2022 [facility] Start: 10-28-2022 Influenza vaccination INFLUENZA (#1) [facility] Comment on above: Postponed from 12/30 (Declined at this time) Start: 09-29-2022 Urine microalbumin profile [facility] Start: 05-01-2022 DEPRESSION ASSESSMENT DEPRESSION ASS [facility] Start: 03-21-2022 End: 05-21-2022 CBC W Auto Differential panel - Blood [facility] Work Phone: Comment on above: Expected: 03/21/2022 , Expires: 05/21/2022 Start: 2022 LIPID SCREEN LIPID SCREEN [facility] Start: 05-01-2021 [facility] Start: 2005 Anxiety Screening Anxiety Screening [facility] Start: 2005 [facility] Start: 2005 HEPATITIS C SCREENING HEPATITIS C SC REENING [facility] Start: 2005 HIV SCREENING HIV SCREENING [facility] Start: 2000 Hepatitis B Vaccine (2 of 3 - 3-dose series) Hepatitis B Vaccine (2 of 3 - 3-dose series) [facility] End: 05-13-2023 ECG COMPLETE ECG COMPLETE ECG Routine Atypical chest pain 1 Occurrences starting 05/13/2022 until 05/13/2023 [facility] Work Phone: Comment on above: 1 Occurrences starti ng 05/13/2022 until 05/13/2023 ECG COMPLETE ECG COMPLETE ECG 05/13/2022 1:40 PM EST [facility] Immunizations Immunization Date Immunization Notes Care Provider Fa cility 06-21-2019 influenza, injectabl e, quadrivalent, preservative free Milad Richter MD Work Phone: [facility] 06-21-2019 influenza virus vaccine, unspecified formulation [facility] Work Phone: [facility] 09-29-2012 tetanus toxoid, redu ilana diphtheria toxoid, and acellular pertussis vaccine, adsorbed Mary Older MORPHOLOGIST.HOSPICE BEREAVEMENT COORDINATOR Work Phone: [facility] Work Phone: 12-22-1999 hepatitis B vaccine, pediatric or pediatric/adolescent dosage Venkata Chavez PT [facility] 12-22-1999 measles, mumps and rubella virus vaccine Milad Richter MD Work Phone: [facility] 12-22-1999 hepatitis B vaccine, unspecified formulation Venkata Chavez PT [facility] Payers Date Payer Category Payer Unknown [id number] 2019 Unknown [id number] 1987 Unknown [id number] 1987 Unknown [id number] Social History Date Type Detail Facility Start: 03-21-2022 [facility] Work Phone: History of tobacco use Current smoker [facility] Work Phone: History of tobacco use Cigarette Smoker [facility] Work Phone: Start: 03-21-2022 Tobacco use and exposure Smoke less tobacco non-user [facility] Work Phone: Start: 03-21-2022 End: 08-16-2022 Alcohol intake Current non-drinker of alcohol (finding) [facility] Start: 03-16-2022 End: 04-11-2022 History SDOH Alcohol Frequency 1 [facility] Start: 03-16-2022 End: 04-11-2022 History SDOH Alcohol Std Drinks 0 [facility] Start: 03-16-2022 End: 04-11-2022 History SDOH Social Connections Phone 5 [facility] Start: 03-16-2022 End: 04-11-2022 History SDOH Social Connections Get Together 2 [facility] Start: 03-16-2022 End: 04-11-2022 History SDOH Social Connections Meetings 98 [facility] Start: 03-16-2022 End: 04-11-2022 History SDOH Social Connections Living 8 [facility] Start: 03-16-2022 History SDOH Physica l Activity DPW 4 [facility] Start: 03-16-2022 End: 04-11-2022 History SDOH Physical Activity MPS 6 [facility] Start: 03-16-2022 End: 04-11-2022 History SDOH Stress 3 [facility] Start: 1985 Sex Assigned At Not on file C [facility] Start: 04-11-2022 End: 09-21-2022 [facility] Start: 04-11-2022 End: 09-21-2022 Social connection and isolation panel [facility] Do you belong to any clubs or organizations such as advent groups, unions, fraternal or athletic groups, or school groups? No [facility] How often do you att end meetings of the clubs or organizations you belong to? Patient refused [facility] Are you now , , , , never or living with a partner? Living with partner [facility] How often to you hav e a drink containing alcohol? Never [facility] How hard is it for y ou to pay for the very basics like food, housing, medical care, and heating Somewhat hard [facility] Do you feel stress - tense, restless, nervous, or anxious, or unable to sleep at night because your mind is troubled all the time - these days [OSQ] To some extent [facility] (I/We) worried wheth er (my/our) food would run out before (I/we) got money to buy more. Never true [facility] Clinical Notes 03-21-2022 to 02-19-2024 Mandy Boss RT(R) - 02/19/2024 6:30 PM Venkata Arreaga, PT - 11/17/2022 5:08 PM Sage Chavez, PT - 08/25/2022 11:37 AM Mandy Alfaro RT(R) - 06/25/2022 10:50 AM EST Note Date & Type Note Facility 02-19-2024 History of Present illness Narrative Radiology Service Progress Note PATIENT NAME: Deion Groves DATE OF SERVICE: February 19, 2024 TIME: 6:27 PM PATIENT IDENTITY VERIFICATION COMPLETED USING TWO (2) IDENTIFIERS: Name and Date of confirmed by patient verbally. FALL SCREENING: Has the patient had 2 falls in the last year or 1 fall with injury or currently using an Ambulatory Assistive Device (Walker, Cane, Wheelchair, Crutches, etc.)? No PATIENT GENDER DATA: Male PATIENT RELEVANT IMPLANT DATA REVIEWED: Not Applicable PATIENT PRESENTS WITH AN IMPLANTABLE OR ATTACHED WELFARE SPECIALIST: No RADIOLOGY DEPARTMENT: General X-ray: Exam(s) Completed: Spine X-Ray(s): Cervical AP / LAT / OBL and Lumbar AP / LAT / L5-S1 / OBL PERIPHERAL IV DATA: Not applicable SIGNED BY: RT Moe(R) February 19, 2024 6:27 PM documented in this encounter [facility] 02-19-2024 Note HNO ID: [id number] Author: MANDY BOSS RT(R) Service: Radiology Author Type: Technologist Type: Progress Notes Filed: 02/19/2024 18:39 Note Text: Radiology Service Progress Note PATIENT NAME: Deion Groves DATE OF SERVICE: February 19, 2024 TIME: 6:27 PM PATIENT IDENTITY VERIFICATION COMPLETED USING TWO (2) IDENTIFIERS: Name and Date of confirmed by patient verbally. FALL SCREENING: Has the patient had 2 falls in the last year or 1 fall with injury or currently using an Ambulatory Assistive Device (Walker, Cane, Wheelchair, Crutches, etc.)? No PATIENT GENDER DATA: Male PATIENT RELEVANT IMPLANT DATA REVIEWED: Not Applicable PATIENT PRESENTS WITH AN IMPLANTABLE OR ATTACHED WELFARE SPECIALIST: No RADIOLOGY DEPARTMENT: General X-ray: Exam(s) Completed: Spine X-Ray(s): Cervical AP / LAT / OBL and Lumbar AP / LAT / L5-S1 / OBL PERIPHERAL IV DATA: Not applicable SIGNED BY: RT Moe(R) February 19, 2024 6:27 PM [facility] 11-17-2022 History of Present illness Narrative Episode Visit Count: 3 Therapist That Will Accept/Oversee The Plan Of Care: Venkata Chavez Start of Care Date: 08/25/22 Onset Date: 08/11/22 REHABILITATION AND SPORTS THERAPY PHYSICAL THERAPY TREATMENT NOTE ASSESSMENT: Deion Groves tolerated the session with decreased symptoms, expected muscle soreness, and no issues. He demonstrated difficulty with posture and tissue tenderness to B upper traps. The patient will continue to benefit from ongoing skilled physical therapy for reassessment by supervising therapist. PLAN FOR NEXT VISIT: ID SUBJECTIVE: Patient Reason for Visit: Pt really feeling tight and painful through the shoulders, neck, chest, and down through both shoulder blades. Notes he did well for a month to 6 weeks but after that really started feeling it, and feels he really could have stood to come in last week due to the pain. Pain: Pain Pain Level: 7 Pain Location: Neck, Chest - Left, Chest - Right Description: Tightness, Sore, Aching Frequency: Continuous OBJECTIVE MEASURES WITH LEVEL OF FUNCTION: Spine Observations R Cervical Spine Palpation Tenderness: Pectoralis minor, Upper trapezius L Cervical Spine Palpation Tenderness: Pectoralis minor, Upper trapezius TREATMENT: Manual Therapy: 1: STM and CFM to B pec minor and L upper trap with push to tolerance Dry Needling: (1) 50 mm needle to L upper trap with pistoning and fanning; (1) 40 and 50 mm needle to R upper trap with pistoning and fanning (pt consent gained, 3 needles in 3 needles out) Skilled Intervention: Manual skills to improve joint mobility, ROM, and decrease pain. Utilized anatomy knowledge of the therapist, and assessment of patient's response to intervention. Billing Manual TherapyTreatment Minutes: 30 Total Treatment Time Minutes (timed/untimed): 30 Session Start Time : 1630 Session Stop Time : 1700 Venkata Chavez PT documented in this encounter [facility] 08-25-2022 History of Present illness Narrative Episode Visit Count: 1 Therapist That Will Accept/Oversee The Plan Of Care: Venkata Chavez Start of Care Date: 08/25/22 Onset Date: 08/11/22 Patient Identified by Name and Date of : Yes REHABILITATION AND SPORTS THERAPY PHYSICAL THERAPY EVALUATION PLAN OF CARE: Assessment: Deion Groves presents with chief complaint of neck and chest pain that interferes with nothing . He presents with impairments in overall function, posture, range of motion, symptom management, and tissue tenderness. PROMIS (Patient-Reported Outcomes Measurement Information System) scores were reviewed and self efficacy domain identified as a rehabilitation concern. Prognosis for therapy is Excellent due to: current objective clinical presentation, good overall health status, positive past response to therapy, within-session changes, good support system/ coping skills . He will benefit from skilled therapy services to meet the goals established for this plan of care as noted below. Goals for Episode of Care: created on 08/25/22 through 10/25/22 Independent in a Home Exercise Program. Patient will decrease pain rating by 2 points to meet minimal clinical important difference for numeric pain rating scale. Restore pain free cervical ROM to WNL to allow for improved functional mobility. Sleep throughout the night without pain/symptoms. Maintain proper sitting posture throughout the session to allow for decreased pain with work tasks. Planned Interventions, Frequency, and Duration: Current Frequency: 1x every other week Duration: 8 weeks Total Number of Visits Planned: 4 Planned Treatment Interventions: Therapeutic exercise (62478), Neuromuscular re-education (41002), Manual therapy (93860), Therapeutic activities (00063), Self-custodial management (15076), Patient/Family/Caregiver Education, Body Mechanics Training PLAN FOR NEXT VISIT: Continue manual and needling per tolerance, pec minor stretch and self STM Patient demonstrates good understanding of plan of care and treatment. The above goals and plan of care were discussed and agreed upon by patient/family. SUBJECTIVE: Deion Groves is a 37 year old male seen today for L sided neck pain/tightness and DELONG have returned after months of relief. Notes new chest pain that feels like pressure/tightness that worsens as the day goes on Functional Limitations: nothing Prior Level of Function: Independent without limitations Intake Information: Prescription present Pain: Pain Pain Level: 8 Pain Location: Neck - Left, Chest - Left, Chest - Right, Back Description: Pressure, Aching, Tightness Frequency: Continuous Post Treatment Pain Post Treatment Pain Level: 2 Post Treatment Pain Location: Neck - Left, Chest - Left, Chest - Right Post Treatment Pain Description: Dull PROMIS Scales Higher is Better 05/04/2022 03/29/2022 Phys Func - Score 52 (within normal limits) 48 (within normal limits) Phys Func - Percentile 58 % 42 % Self-Eff Symptom - Score 39 (Low) 41 (Average) Self-Eff Symptom - Percentile 14 % 18 % T-scores: mean of general population = 50. 5 points is clinically meaningfully difference Percentiles provide an indication of how the patient's score ranks in relation to the general population. Higher percentile rankings indicate better function/quality of life. 50th percentile is the average of the general population and indicates half of respondents had a worse score. OBJECTIVE MEASURES WITH LEVEL OF FUNCTION: Spine Observations R Cervical Spine Palpation Tenderness: Pectoralis minor L Cervical Spine Palpation Tenderness: Upper trapezius, Pectoralis minor Cervical Spine ROM Cervical ROM : Limitation AROM Cervical Flexion AROM: Normal Cervical Extension AROM: Normal Cervical Side-Bend Right AROM: Minimal limitation Cervical Side-Bend Left AROM: Normal Cervical Rotation Right AROM: Minimal limitation Cervical Rotation Left AROM: Normal Education: Education Learning/educational needs: Home exercise program, Plan of Care, Changes in Plan of Care, Posture, Body Mechanics TREATMENT: PT Treatment Interventions: Manual Therapy Evaluation Manual Therapy: 1: STM and CFM to B pec minor and L upper trap with push to tolerance Dry Needling: (2) 50 mm needle to L upper trap with pistoning and fanning; (1) 60 mm needle to B pec minor with pistoning. pt consent gained. 4 needles in, 4 needles out Skilled Intervention: Manual skills to improve joint mobility, ROM, and decrease pain. Utilized anatomy knowledge of the therapist, and assessment of patient's response to intervention. Billing * Evaluation Low Complexity: 1 Unit Manual TherapyTreatment Minutes: 30 Total Treatment Time Minutes (timed/untimed): 44 Venkata Chavez PT documented in this encounter [facility] 06-25-2022 History of Present illness Narrative Radiology Service Progress Note PATIENT NAME: Deion Groves DATE OF SERVICE: June 25, 2022 TIME: 10:50 AM PATIENT IDENTITY VERIFICATION COMPLETED USING TWO (2) IDENTIFIERS: Name and Date of confirmed by patient verbally. FALL SCREENING: Has the patient had 2 falls in the last year or 1 fall with injury or currently using an Ambulatory Assistive Device (Walker, Cane, Wheelchair, Crutches, etc.)? No PATIENT GENDER DATA: Male PATIENT RELEVANT IMPLANT DATA REVIEWED: Not Applicable RADIOLOGY DEPARTMENT: General X-ray: Exam(s) Completed: Chest X-Ray PERIPHERAL IV DATA: Not applicable SIGNED BY: RT Moe(R) June 25, 2022 10:50 AM documented in this encounter [facility] 06-25-2022 Miscellaneous Notes Test results are okay and viewed. documented in this encounter [facility] 06-25-2022 Progress note Formatting of t his note might be different from the original. Test results are okay and viewed. [facility] Work Phone: 06-25-2022 History of Present illness Narrative This note was created using [employer]. Subjective Deion Groves is a 37 year old male. He was here for upper back ache that radiates around both sides of the chest, to both armpits and the anterior chest. Pain has been varying in severity for one month, worse with certain postures, and better with physical activity and work. Symptoms started after he landed on his upper back a few times snowboarding. He was seen a few months ago for neck pain and this was different. He was concerned it was something internal. Patient was prescribed medication for anxiety, but he was not taking the sertraline. He felt he was just hyperactive. Review of Systems Constitutional: Negative for chills, fatigue and fever. Respiratory: Negative for cough, shortness of breath and wheezing. Cardiovascular: Negative for chest pain and palpitations. Gastrointestinal: Negative. Skin: Negative for rash. Psychiatric/Behavioral: Negative. ACTIVE PROBLEM LIST Jaw Pain Neck Pain Current Outpatient Medications Medication Sig sertraline (ZOLOFT) 50 mg tablet Take 1 tablet by mouth once daily. Omeprazole Magnesium 20 mg tablet Take 20 mg by mouth once daily. No current facility-administered medications for this visit. Objective BP 112/68 Pulse 88 Temp 36 C (96.8 F) Resp 18 Wt 83.5 kg (184 lb) SpO2 99% BMI 27.17 kg/m Physical Exam Constitutional: Appearance: Normal appearance. HENT: Head: Atraumatic. Cardiovascular: Rate and Rhythm: Normal rate and regular rhythm. Heart sounds: No murmur heard. No gallop. Pulmonary: Effort: No respiratory distress. Breath sounds: Normal breath sounds. No wheezing or rales. Chest: Chest wall: No tenderness. Musculoskeletal: Right shoulder: Normal. Left shoulder: Normal. Cervical back: Normal and neck supple. No tenderness. Normal range of motion. Thoracic back: Normal. Neurological: General: No focal deficit present. Mental Status: He is alert. Psychiatric: Attention and Perception: Attention normal. Mood and Affect: Mood is anxious. Assessment and Plan 1. Atypical chest pain - ICD9: 786.59, ICD10: R07.89 Shared medical decision making was done. His symptoms are consistent with a musculoskeletal postural condition. Imaging is likely normal. We agreed to xray to reassure him. - XR CHEST 2V FRONTAL/LAT Branden Richter, MD documented in this encounter [facility] 05-13-2022 History of Present illness Narrative CC: Patient presents with: 1 month med follow up HPI Deion Groves is a 37 year old male who presents today for above. Patient was seen one month ago and started on Zoloft 25 mg for anxiety and depression. ADHD symptoms were also discussed at that visit, decision was made to treat anxiety and depression first. Patient reports some improvement in anxiety and depression. ADHD symptoms are still bothersome. Side effects: None Denies suicidal thoughts or plan. BAILEY-7 ANXIETY SCALE 05/13/2022 FEELING NERVOUS,ANXIOUS,OR ON EDGE 3 Nearly every day NOT BEING ABLE TO STOP OR CONTROL WORRYING 2 Over half the days WORRYING TOO MUCH ABOUT DIFFERENT THINGS 2 Over half the days TROUBLE RELAXING 1 Several days BEING SO RESTLESS THAT IT'S HARD TO SIT STILL 3 Nearly every day BEING EASILY ANNOYED OR IRRITABLE 1 Several days FEELING AFRAID IF SOMETHING AWFUL MIGHT HAPPEN 1 Several days GAD7 SCORE 13 IF YOU CHECKED OFF ANY PROBLEMS Somewhat difficult CP PHQ9 05/13/2022 Little interest or pleasure 1 - Several days Feeling down, depressed, hopeless 1 - Several days Trouble falling or staying asleep, sleeping too much 0 - Not at all Feeling tired, having little energy 1 - Several days Poor appetite or overeating 0 - Not at all Feeling bad about yourself, failure or you have let yourself/family down 1 - Several days Trouble concentrating on things 2 - More than half the days Moving or speaking so slowly, or fidgety or restless 3 - Nearly every day Thoughts that you would be better off , or of hurting yourself in some way 0 - Not at all How difficult have these problems made things Somewhat difficult Interpretation of Total Score 5-9 Mild depression Patient had also reports chest pain that has been present for months. Location: anterior chest Quality: tightness Radiates: none Pain is triggered/aggravated by: nothing he can think of. Associated symptoms are none. Denies: exertional, palpitations, diaphoresis, numbness, tingling, dizziness, nausea/vomiting, releived by rest. Patient's cardiac risk factors are male. Last EKG: None REVIEW OF SYSTEMS See HPI PAST MEDICAL HISTORY Diagnosis Date Patient denies medical problems PAST SURGICAL HISTORY Procedure Laterality Date NONE ALLERGIES Patient has no known allergies. MEDICATIONS Omeprazole Magnesium 20 mg tablet Take 20 mg by mouth once daily. sertraline (ZOLOFT) 25 mg tablet Take 1 tablet by mouth once daily. FAMILY HISTORY Problem Relation Age of Onset No Known Problems Mother Prostate Cancer Father No Known Problems Brother Cancer Maternal Grandfather ? Dementia Paternal Grandmother No Known Problems Paternal Grandfather Social History Tobacco Use Smoking status: Former Years: 7.00 Types: Cigarettes Smokeless tobacco: Never Vaping Use Vaping Use: Never used Substance Use Topics Alcohol use: No Drug use: Yes Types: Marijuana Comment: daily PHYSICAL EXAM BP 119/74 Pulse (!) 59 Resp 16 Wt 84.4 kg (186 lb) BMI 27.47 kg/m Appearance: well dressed well groomed, cooperative, and pleasant Behavior: good eye contact, tense Speech: fluent and coherent and fast Mood: anxious Affect: appropriate Insight: good Judgment: good Heart: regular rate and rhythm, without murmur Lungs: Lungs clear to auscultation, No wheezing, rales or rhonchi ASSESSMENT/PLAN: 1. Atypical chest pain - ICD9: 786.59, ICD10: R07.89 (primary diagnosis) Atypical chest pain, symptoms are not consistent with cardiac ischemia due to nonexertional nature of symptom possible etiology include musculoskeletal and Anxiety - ECG COMPLETE sinus bradycardia, otherwise normal. No evidence of ischemia. No previous EKG for comparison - reassurance given, continue to monitor 2. Anxiety disorder, unspecified type - ICD9: 300.00, ICD10: F41.9 Marginal improvement with Zoloft. Suspect overlap with ADHD. - Increase Zoloft to 50 mg daily - recommend formal ADHD evaluation, consider treatment if indicated - Reviewed benefits of sleep hygeine, diet and exercise - Follow-up in 3 months or sooner as needed - Instructed patient to contact office or [id number] after-hours promptly should condition worsen or any new symptoms appear. - Counseling Center [facility] and after hours crisis line 3. Depressive disorder - ICD9: 311, ICD10: F32.A As above Prescription instructions reviewed with patient as applicable. Potential red flag symptoms discussed with the patient. Reviewed appropriate action plan to take if red flag symptoms occur. Patient agreeable to treatment plan. Mary Martin APRN.CNP documented in this encounter [facility] 05-06-2022 History of Present illness Narrative Episode Visit Count: 4 Therapist That Will Accept/Oversee The Plan Of Care: Venkata Chavez Start of Care Date: 03/23/22 REHABILITATION AND SPORTS THERAPY PHYSICAL THERAPY PROGRESS REPORT PLAN OF CARE UPDATE: Assessment: Deion Groves demonstrates significant improvement in headaches, work tasks and heavy exertion. He has met goals. Patient continues to present with impairments in tissue tenderness that interfere with nothing . Current prognosis is Excellent due to: current objective clinical presentation;good overall health status;positive past response to therapy;within-session changes;good support system/ coping skills . He will benefit from continued skilled therapy services to meet the updated goals for this plan of care as noted below. Goals updated on 05/05/2022. Goals for Episode of Care: created on 03/23/22 through 05/23/22 Independent in a Home Exercise Program. Met Patient will decrease pain rating by 2 points to meet minimal clinical important difference for numeric pain rating scale. Met Restore pain free cervical ROM to WNL to allow for improved functional mobility and decreased pain. Met Sleep throughout the night without pain/symptoms. Met Sit 2 hours without pain/symptoms to allow for improved work task Tolerance. Met Maintain proper sitting posture throughout the session to allow for decreased pain. Met Planned Interventions, Frequency, and Duration: (pt to follow up as needed), Patient to be seen for Manual therapy (09668);Therapeutic exercise (08469) PLAN FOR NEXT VISIT: Pt following up as needed SUBJECTIVE: Patient Reason for Visit: Pt has not had a headache in weeks. Occasional tightness, with some referred pulling in the upper trap, but no true pain. Functional Limitations: nothing Pain: Pain Pain Level: 0 Pain Location: Neck Description: Tightness Frequency: Intermittent PROMIS Scales Higher is Better 03/16/2022 03/29/2022 05/04/2022 Phys Func - Score - 48 (within normal limits) 52 (within normal limits) Phys Func - Percentile - 42 % 58 % GH Physical - Score 47.7 (Good) - - GH Physical - Percentile 41 % - - GH Mental - Score 41.1 (Good) - - GH Mental - Percentile 19 % - - Self-Eff Symptom - Score - 41 (Average) 39 (Low) Self-Eff Symptom - Percentile - 18 % 14 % T-scores: mean of general population = 50. 5 points is clinically meaningfully difference Percentiles provide an indication of how the patient's score ranks in relation to the general population. Higher percentile rankings indicate better function/quality of life. 50th percentile is the average of the general population and indicates half of respondents had a worse score. T-scores: mean of general population = 50. 5 points is clinically meaningfully difference Percentiles provide an indication of how the patient's score ranks in relation to the general population. Higher percentile rankings indicate better function/quality of life. 50th percentile is the average of the general population and indicates half of respondents had a worse score. OBJECTIVE MEASURES WITH LEVEL OF FUNCTION: Spine Observations L Cervical Spine Palpation Tenderness: Upper trapezius Cervical Spine ROM Cervical Flexion AROM: Normal Cervical Extension AROM: Normal Cervical Side-Bend Right AROM: Normal Cervical Side-Bend Left AROM: Normal Cervical Rotation Right AROM: Normal Cervical Rotation Left AROM: Normal TREATMENT: Manual Therapy: 3: STM to B upper trap and SCM with push to tolerance Dry Needling: (1) 50 mm needle to L upper trap with pistoning and fanning Skilled Intervention: Manual skills to improve joint mobility, ROM, and decrease pain. Utilized anatomy knowledge of the therapist, and assessment of patient's response to intervention. Billing Manual TherapyTreatment Minutes: 28 Total Treatment Time Minutes (timed/untimed): 28 Venkata Chavez PT documented in this encounter [facility] 04-14-2022 History of Present illness Narrative Episode Visit Count: 3 Therapist That Will Accept/Oversee The Plan Of Care: Venkata Chavez Start of Care Date: 03/23/22 REHABILITATION AND SPORTS THERAPY PHYSICAL THERAPY TREATMENT NOTE ASSESSMENT: Deion Groves tolerated the session with decreased symptoms, expected muscle soreness, and no issues. He demonstrated improvements in neck pain, DELONG symptoms, and improved neck range of motion/ perceived tightness. The patient will continue to benefit from ongoing skilled physical therapy to progress toward set goals. PLAN FOR NEXT VISIT: ID SUBJECTIVE: Patient Reason for Visit: Pt has been good the last 2 weeks. Notes the right side of his neck actually flared a bit the last 2 days, but better and asymptomatic today. Pain: Pain Pain Level: 1 Pain Location: Neck Description: Tightness Frequency: Intermittent OBJECTIVE MEASURES WITH LEVEL OF FUNCTION: B upper traps trigger points noted TREATMENT: Manual Therapy: 3: STM to B upper trap and SCM with push to tolerance Dry Needling: (1) 50 mm needle to B upper trap with pistoning and fanning; (2) 50 mm needles to R upper trap with pistoning and fanning Skilled Intervention: Manual skills to improve joint mobility, ROM, and decrease pain. Utilized anatomy knowledge of the therapist, and assessment of patient's response to intervention. Billing Manual TherapyTreatment Minutes: 31 Total Treatment Time Minutes (timed/untimed): 31 Venkata Chavez PT documented in this encounter [facility] 03-23-2022 History of Present illness Narrative Episode Visit Count: 1 Therapist That Will Accept/Oversee The Plan Of Care: Venkata Chavez Start of Care Date: 03/23/22 Patient Identified by Name and Date of : Yes REHABILITATION AND SPORTS THERAPY PHYSICAL THERAPY EVALUATION PLAN OF CARE: Assessment: Deion Groves presents with chief complaint of L sided DELONG and neck pain that interferes with nothing (He does everything he needs to, but often times needs to suffer through severe pain and headaches) . He presents with impairments in ADL's, overall function, posture, range of motion, strength , stress management, symptom management, and tissue tenderness. PROMIS (Patient-Reported Outcomes Measurement Information System) scores were reviewed and all domains identified as within normal limits. Prognosis for therapy is Good due to: current objective clinical presentation;good overall health status;within-session changes;good support system/ coping skills . He will benefit from skilled therapy services to meet the goals established for this plan of care as noted below. Goals for Episode of Care: created on 03/23/22 through 05/23/22 Independent in a Home Exercise Program. Patient will decrease pain rating by 2 points to meet minimal clinical important difference for numeric pain rating scale. Restore pain free cervical ROM to WNL to allow for improved functional mobility and decreased pain. Sleep throughout the night without pain/symptoms. Sit 2 hours without pain/symptoms to allow for improved work task tolerance Maintain proper sitting posture throughout the session to allow for decreased pain Planned Interventions, Frequency, and Duration: Current Frequency: 1x/week Duration: 8 weeks Total Number of Visits Planned: 8 Planned Treatment Interventions: Therapeutic exercise (30456);Neuromuscular re-education (60395);Therapeutic activities (93201);Manual therapy (96499);Self-custodial management (63365);Patient/Family/Caregiver Education;Body Mechanics Training PLAN FOR NEXT VISIT: Continue manual as needed, may progress exercises to include DELONG stretches Patient demonstrates good understanding of plan of care and treatment. The above goals and plan of care were discussed and agreed upon by patient/family. SUBJECTIVE: Deion Groves is a 37 year old male seen today for L sided neck pain for over a year now. Started when he felt a pop in the jaw. Immediately and ever since, pain behind the L ear that radiates into mid shoulder, up the neck, and into the head (demonstrates ? like pattern gesturing with hands). Pt also had issues with eating swallowing, but this has since gotten better with a round of heavy antibiotics prescribed by the dentist. Currently on prednisone and this is the first time he has felt some relief in the past year. Notes he has an incredibly stressful job with issues related to clenching and above and beyond stress all on him- very overworked and under staffed. 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 5 points is clinically meaningfully difference Percentiles provide an indication of how the patient's score ranks in relation to the general population. Higher percentile rankings indicate better function/quality of life. 50th percentile is the average of the general population and indicates half of respondents had a worse score. T-scores: mean of general population = 50. 5 points is clinically meaningfully difference Percentiles provide an indication of how the patient's score ranks in relation to the general population. Higher percentile rankings indicate better function/quality of life. 50th percentile is the average of the general population and indicates half of respondents had a worse score. OBJECTIVE MEASURES WITH LEVEL OF FUNCTION: Spine Observations L Cervical Spine Palpation Tenderness: Upper trapezius;Sternocleidomastoid;Subo ccipitals;Paraspinals Cervical Spine ROM Cervical ROM : Limitation AROM Cervical Flexion AROM: Normal Cervical Extension AROM: Normal Cervical Side-Bend Right AROM: Moderate limitation Cervical Side-Bend Left AROM: Minimal limitation Cervical Rotation Right AROM: Moderate limitation Cervical Rotation Left AROM: Minimal limitation UE and Cervical Strength R UE Strength: 5/5 L UE Strength: 5/5 Special Tests - Cervical Cervical Special Tests: Cervical Compression;Cervical Distraction;Quadrant;Spurling Cervical Compression: Negative Cervical Distraction: Negative Quadrant: Left Negative Spurling: Left Negative Education: Education Learning/educational needs: Home exercise program;Plan of Care;Changes in Plan of Care;Posture;Body Mechanics TREATMENT: PT Treatment Interventions: Therapeutic Exercise;Manual Therapy;Self-Senior Care Management Evaluation Therapeutic Exercise: 1: *L upper trap stretch 3x30 sec 2: *L SCM stretch 3x30 sec Skilled Intervention: Patient was educated in proper exercise technique and purpose for exercises. Skilled judgment was provided in selection of appropriate interventions. Provided written instruction for home exercise program to facilitate proper performance and compliance. Correct performance of therapeutic exercises was facilitated with verbal, visual, and tactile cuing. Manual Therapy: 1: Manual cervical traction x3 min 2: L upper trap stripping 3: L STM to upper trap with push to tolerance Dry Needling: (1) 50 mm needle to L upper trap with pistoning and fanning Skilled Intervention: Manual skills to improve joint mobility, ROM, and decrease pain. Utilized anatomy knowledge of the therapist, and assessment of patient's response to intervention. Self-Senior Care Management: 1: Showed pt [facility] referral patterns for cervical mm and had him self ID familiar referral patterns. Discussed etiology of trigger points, referred pain, and cervicogenic DELONG Skilled Intervention: Skilled judgment in the selection of proper modification for activity of daily living/home management based on clinical presentation, deficits, and needs. Reviewed patient specific diagnosis in relation to activities of daily living/home management. Activity progression based on professional judgement. Billing * Evaluation Low Complexity: 1 Unit Therapeutic Exercise Treatment Minutes: 3 Manual TherapyTreatment Minutes: 20 Self-Care/Home Management Treatment Minutes: 18 Total Treatment Time Minutes (timed/untimed): 60 Venkata Chavez PT documented in this encounter [facility] 03-21-2022 History of Present illness Narrative CC: Patient presents with: Establish Care HPI Deion Groves is a 37 year old male who presents today for above. No previous PCP. Patient's main concern today is ongoing headaches, neck and jaw pain. Symptoms started suddenly March 2021 when he felt a popping sensation by his left ear/jaw immediately followed by intense pain. From there the following symptoms developed: sore throat, hoarseness, left ear pain/fullness with tinnitus, difficulty swallowing with sensation of food getting stuck in his throat, constant throat clearing, left sided neck pain radiating down to his left shoulder, left occipital headaches and what feels like a swollen lymph node on the left side of his neck. Initial evaluation was in urgent care on 04/29/21. Strep test negative. Fluid in left ear on exam. Diagnosed with acute otitis media and treated with Augmentin. Symptoms did not improve. In May he was evaluated by ENT in [place]. Exam including pharyngeal scope did not show any abnormalities. It was recommended he take Prilosec for possible GERD, patient did not take long enough to see any noticeable improvement. He saw a different ENT in June. CT neck ordered to evaluate possible lymph node, this was negative. Most recently he was evaluated by a dentist who felt patient needed a root canal on the right and left and treated him with Amoxicillin 500 mg TID for possible dental infection. Most of his respiratory symptoms improved dramatically with this. He then saw a client project coordinator for possible root canal however after evaluating patient he determined patient did not need this. Instead he diagnosed him with bruxism from findings of wear and tear on this teeth consistent with grinding Wearing a mouth guard now. Patient wondering about possible TMD as the cause of symptoms but also concerned about brain tumor or such due to intense left sided headaches. They can be severe at times and come out of no where. For the neck pain he has been getting deep tissue massages with some relief. Occasionally takes Tylenol or ibuprofen. He denies jaw locking up, TMJ clicking or popping. He can eat and open his mouth wide without any TMJ discomfort. Does not make pain in ear or neck worse. 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 REVIEW OF SYSTEMS GENERAL: Negative for malaise, significant weight loss and fever HEENT: HEAD Positive for headache and facial pain, EYES Positive for pain behind left eye, EARS Positive for tinnitus on the left and earaches on the left, NOSE Positive for congestion and nasal discharge, and MOUTH & THROAT Positive for hoarseness and sore throat RESPIRATORY: Negative for cough, wheezing and shortness of breath CARDIOVASCULAR: Negative for chest pain, leg swelling and palpitations NEURO: Syncope, Seizures, Numbness or tingling of hands, Numbness or tingling of feet, Involuntary movements, Tremor, and visual disturbances History reviewed. No pertinent past medical history. History reviewed. No pertinent surgical history. ALLERGIES Patient has no known allergies. MEDICATIONS acetaminophen (TYLENOL) 325 mg tablet Take 650 mg by mouth every 6 hours as needed. FAMILY HISTORY Problem Relation Age of Onset No Known Problems Mother Prostate Cancer Father No Known Problems Brother Cancer Maternal Grandfather ? Dementia Paternal Grandmother No Known Problems Paternal Grandfather Social History Tobacco Use Smoking status: Former Years: 7.00 Types: Cigarettes Smokeless tobacco: Never Vaping Use Vaping Use: Never used Substance Use Topics Alcohol use: No Drug use: Yes Types: Marijuana Comment: daily PHYSICAL EXAM BP 104/62 Pulse 68 Resp 16 Ht 175.3 cm (5' 9") Wt 85.3 kg (188 lb) SpO2 99% BMI 27.76 kg/m General Appearance: well appearing, in no acute distress, alert Pysch: anxious, speech fast, tearful at times Skin: Skin color, texture, turgor normal for age; Head: normocephalic, atraumatic. TMJ- smooth ROM without clicking, locking, popping. No tenderness with palpation. Occiput- no tenderness with palpation. Eyes: PERRLA, EOM's intact, conjunctiva pink and moist, no icterus, sclera white, non-injected Ears: external ears normal to inspection and palpation, canals clear, Left tympanic membrane normal. , Right tympanic membrane normal Neck: Neck supple, No adenopathy, no cervical spine or paraspinal tenderness. No trapezius or sternocleidomastoid tenderness. Oropharynx: lips normal without lesions, tongue midline and normal, soft palate, uvula, and tonsils normal Lymph nodes: No supraclavicular lymphadenopathy Lungs: Lungs clear to auscultation. No wheezing, rhonchi, rales. Heart: RRR without murmur, gallop, or rubs. No ectopy Neurological: Negative findings: speech normal, mental status intact, cranial nerves 2-12 intact, gait, including heel, toe, and tandem walking normal, muscle strength normal, finger to nose normal, reflexes normal and symmetric ASSESSMENT/PLAN: 1. Neck pain - ICD9: 723.1, ICD10: M54.2 (primary diagnosis) Symptoms consistent with diagnosis of TMD. No alarm symptoms or exam findings. Neuro exam normal. Reassurance given findings today are not concerning for brain tumor or other neurological cause of symptoms Check labs: - CBC + DIFF - COMP METABOLIC PANEL - SED RATE WESTERGREN - C-REACTIVE PROTEIN (CRP) CONSULT TO PHYSICAL THERAPY Start prednisone burst with taper Follow-up in 3 weeks or sooner as needed 2. Headaches - ICD9: 784.0, ICD10: R51.9 As above 3. Jaw pain - ICD9: 784.92, ICD10: R68.84 As above - CBC + DIFF - COMP METABOLIC PANEL - SED RATE WESTERGREN - C-REACTIVE PROTEIN (CRP) - CONSULT TO PHYSICAL THERAPY 4. Left ear pain - ICD9: 388.70, ICD10: H92.02 As above 5. Screening for HIV (human immunodeficiency virus) - ICD9: V73.89, ICD10: Z11.4 - HIV 1 2 COMBO(AG/AB),WITH REFLEX TO DIFFERENTIATION 6. Special screening examination for viral disease - ICD9: V73.99, ICD10: Z11.59 - HEP C AB IA W/CONF SCRN 7. Screening for lipid disorders - ICD9: V77.91, ICD10: Z13.220 - LIPID PANEL BASIC Prescription instructions reviewed with patient as applicable. Potential red flag symptoms discussed with the patient. Reviewed appropriate action plan to take if red flag symptoms occur. Patient agreeable to treatment plan. Mary Martin APRN.CNP documented in this encounter [facility] Evaluation note Diagnosis Neck pain- Primary Cervicalgia Headaches Jaw pain Left ear pain Otalgia, unspecified Screening for HIV (human immunodeficiency virus) Special screening examination for other specified viral diseases Special screening examination for viral disease Special screening examination for unspecified viral disease Screening for lipid disorders [facility] Diagnosis Jaw pain- Primary Neck pain [facility]ervicalgia [facility] Diagnosis Neck pain- Primary Cervicalgia Jaw pain [facility] Diagnosis Neck pain- Primary Cervicalgia Jaw pain [facility] Diagnosis Atypical chest pain- Primary Other chest pain Anxiety disorder, unspecified type Depressive disorder Depressive disorder, not elsewhere classified documented in this encounter [facility] note* Diagnosis Atypical chest pain- Primary Other chest pain [facility] Diagnosis Neck pain- Primary Cervicalgia Jaw pain [facility] Diagnosis Neck pain- Primary Cervicalgia [facility] Diagnosis Atypical chest pain Other chest pain documented in this encounter [facility] for referral (narrative)* Outpatient Procedure (Routine) - Closed Specialty Diagnoses / Procedures Referred By Jaci coburn [facility] Diagnoses Atypical chest pain Procedures ECG COMPLETE ECG ROUTINE ECG W/LEAST 12 LDS W/I&R Mary Martin APRN.CNP [address] [place] [address] [facility] [place] [address] [place] [address] Referral ID Status Reason Start Date Expiration Date V isits Requested Visits Authorized [id number] Closed Auto-Generate d Referral 05/13/2022 05/13/2023 1 1 [facility] System Summary Purpose Family History No Family History Records FoundNo Family History Records FoundNo Family History Records Found Advance Directives No Advanced Directives Records FoundNo Advanced Directives Records FoundNo Advanced Directives Records Found Reason for Referral Specialty Diagnoses / Procedures Referred By Contac t Referred To Contact [facility] Diagnoses Jaw pain Neck pain Procedures CONSULT TO PHYSICAL THERAPY PHYSICAL THERAPY EVALUATION HIGH COMPLEX 45 MINS THERAPEUTIC EXERCISES RE, EA 15 MIN. Mary Martin APRN.HOSPICE BEREAVEMENT COORDINATOR [address] [place] [address] [facility] [address] [address] Referral ID Status Reason Start Date Expiration Date Visits Requested Visits Authorized [id number] Authorized Auto-Generat ed Referral 2 04/30/2022 99 99 Specialty Diagnoses / Procedures Referred By Contac t Referred To Contact [facility] Diagnoses Jaw pain Neck pain Procedures PT REHAB FOLLOW UP ORDER THERAPEUTIC EXERCISES RE, EA 15 MIN. Venkata Chavez, LANDON [facility] [address] [address] Referral ID Status Reason Start Date Expiration Date Visits Requested Visits Authorized [id number] Pending Review PCP Requested Referral Auto-Generate d Referral 2 06/21/2022 1 1 Specialty Diagnoses / Procedures Referred By Contac t Referred To Contact [facility] Diagnoses Neck pain Jaw pain Procedures PT REHAB FOLLOW UP ORDER THERAPEUTIC EXERCISES RE, EA 15 MIN. Venkata Chavez PT [facility] [address] [address] Referral ID Status Reason Start Date Expiration Date Visits Requested Visits Authorized [id number] Pending Review PCP Requested Referral Auto-Generate d Referral 08/25/2022 11/23/2022 1 1 Additional Source Comments (unrecognized sect ion and content) No Status Records FoundNo Status Records FoundNo Status Records Found INFORMATION SOURCE (unrecogn ized section and content) DATE CREATED AUTHOR 06/12/2021 [facility] DATE CREATED AUTHOR AUTHOR'S ORGANIZ ATION 02/21/2024 [facility] DATE CREATED AUTHOR AUTHOR'S ORGANIZ ATION 03/30/2024 [facility] Source Comments (unrecognize d section and content) In the event this informatio n is protected by the Federal Confidentiality of Alcohol and Drug Abuse Patient Records regulations: The Federal rules restrict any use of the information to criminally investigate or prosecute any alcohol or drug abuse patient.[facility] the event this information is protected by the Federal Confidentiality of Alcohol and Drug Abuse Patient Records regulations: The Federal rules restrict any use of the information to criminally investigate or prosecute any alcohol or drug abuse patient.[facility] the event this information is protected by the Federal Confidentiality of Alcohol and Drug Abuse Patient Records regulations: The Federal rules restrict any use of the information to criminally investigate or prosecute any alcohol or drug abuse patient.[facility] the event this information is protected by the Federal Confidentiality of Alcohol and Drug Abuse Patient Records regulations: The Federal rules restrict any use of the information to criminally investigate or prosecute any alcohol or drug abuse patient.[facility] the event this information is protected by the Federal Confidentiality of Alcohol and Drug Abuse Patient Records regulations: The Federal rules restrict any use of the information to criminally investigate or prosecute any alcohol or drug abuse patient.[facility] the event this information is protected by the Federal Confidentiality of Alcohol and Drug Abuse Patient Records regulations: The Federal rules restrict any use of the information to criminally investigate or prosecute any alcohol or drug abuse patient.[facility] System[facility] the event this information is protected by the Federal Confidentiality of Alcohol and Drug Abuse Patient Records regulations: The Federal rules restrict any use of the information to criminally investigate or prosecute any alcohol or drug abuse patient.[facility] System[facility] the event this information is protected by the Federal Confidentiality of Alcohol and Drug Abuse Patient Records regulations: The Federal rules restrict any use of the information to criminally investigate or prosecute any alcohol or drug abuse patient.[facility] the event this information is protected by the Federal Confidentiality of Alcohol and Drug Abuse Patient Records regulations: The Federal rules restrict any use of the information to criminally investigate or prosecute any alcohol or drug abuse patient.[facility] System[facility] the event this information is protected by the Federal Confidentiality of Alcohol and Drug Abuse Patient Records regulations: The Federal rules restrict any use of the information to criminally investigate or prosecute any alcohol or drug abuse patient.[facility] Reason for Visit (unrecogniz ed section and content) Reason Comments PT Progress Note Specialty Diagnoses / Procedures Referred By Contac t Referred To Contact Physical Therapy / PHYSICAL THERAPY Diagnoses Jaw pain [R68.84]; Neck pain [M54 Procedures EST RS PT ORTH MSK Older, Mary, MORPHOLOGIST.HOSPICE BEREAVEMENT COORDINATOR [address] [place] [address] Venkata Chavez PT Referral ID Status Reason Start Date Expiration Date V isits Requested Visits Authorized [id number] Authorized 05/05/2022 04/30/2023 30 30 Reason Comments PT Eval Specialty Diagnoses / Procedures Referred By Contac t Referred To Contact Physical Therapy / PHYSICAL THERAPY Diagnoses Jaw pain [R68.84]; Neck pain [M54 Procedures EST RS PT ORTH MSK Older, Mary, MORPHOLOGIST.HOSPICE BEREAVEMENT COORDINATOR [address] [place] [address] Venkata Chavez, LANDON Reason Comments Establish Care Specialty Diagnoses / Procedures Referred By Contac t Referred To Contact [facility] Diagnoses Jaw pain Neck pain Procedures CONSULT TO PHYSICAL THERAPY PHYSICAL THERAPY EVALUATION HIGH COMPLEX 45 MINS THERAPEUTIC EXERCISES RE, EA 15 MIN. Mary Martin APRN.HOSPICE BEREAVEMENT COORDINATOR [address] [place] [address] [facility] [place] [address] [place] [id number] Referral ID Status Reason Start Date Expiration Date Visits Requested Visits Authorized [id number] Authorized Auto-Generat ed Referral 2 04/30/2022 99 99 Reason Comments Physical Therapy Specialty Diagnoses / Procedures Referred By Contac t Referred To Contact [facility] Diagnoses Jaw pain Neck pain Procedures CONSULT TO PHYSICAL THERAPY PHYSICAL THERAPY EVALUATION HIGH COMPLEX 45 MINS THERAPEUTIC EXERCISES RE, EA 15 MIN. Mary Martin APRN.HOSPICE BEREAVEMENT COORDINATOR [address] [place] [address] [facility] [address] [address] Specialty Diagnoses / Procedures Referred By Contac t Referred To Contact [facility] Diagnoses Jaw pain Neck pain Procedures PT REHAB FOLLOW UP ORDER THERAPEUTIC EXERCISES RE, EA 15 MIN. Venkata Chavez PT [facility] [address] [address] Referral ID Status Reason Start Date Expiration Date Visits Requested Visits Authorized [id number] Pending Review PCP Requested Referral Auto-Generate d Referral 2 06/21/2022 1 1 Reason Comments 1 month med follow up Reason Comments Established Patient X 1 month constant u pper posterior back and bilateral underarms dull and achy. Care Teams (unrecognized sec tion and content) [employer] Relationship Specialty Start Date End Date Mary Martin APRN.HOSPICE BEREAVEMENT COORDINATOR [address] [place] [address] PCP - General Internal Medicine 03/21/22 [employer] Relationship Specialty Start Date End Date Milad Richter MD [address] [place] [address] PCP - General Internal Medicine 03/22/22 [employer] Relationship Specialty Start Date End Date Milad Richter MD [address] [place] [address] PCP - General Internal Medicine 03/22/22 [employer] Relationship Specialty Start Date End Date Milad Richter MD [address] [place] [address] PCP - General Internal Medicine 03/22/22 [employer] Relationship Specialty Start Date End Date Milad Richter MD [address] [place] [address] PCP - General Internal Medicine 03/22/22 [employer] Relationship Specialty Start Date End Date Milad Richter MD [address] [place] [address] PCP - General Internal Medicine 03/22/22 [employer] Relationship Specialty Start Date End Date Milad Richter MD [address] [place] [address] PCP - General Internal Medicine 03/22/22 [employer] Relationship Specialty Start Date End Date Milad Richter MD [address] [place] [address] PCP - General Internal Medicine 03/22/22 [employer] Relationship Specialty Start Date End Date Milad Richter MD [address] [place] [address] PCP - General Internal Medicine 03/22/22 FOR RECORDS PERTAINING TO PATIENTS WHO ARE OR HAVE BEEN ENROLLED IN A CHEMICAL DEPENDENCY/SUBSTANCEABUSE PROGRAM, SOME INFORMATION MAY BE OMITTED. This clinical summary was aggregated from multiple sources. Caution should be exercised in using it in the provision of clinical care. This summary normalizes information from multiple sources, and as a consequence, information in this document may materially change the coding, format and clinical context of patient data. In addition, data may be omitted in some cases. CLINICAL DECISIONS SHOULD BE BASED ON THE PRIMARY CLINICAL RECORDS. [employer] [facility]. provides no warranty or guarantee of the accuracy or completeness of information in this document.
[2025-03-27 17:21] LABS: Hematocrit 43.7 % (40-54); Hemoglobin 14.9 g/dL (13.0-16.5); Immature Granulocytes Count 0.040 X10^3/uL (0.0-0.0); Mean Corp Hgb Conc 34.1 g/dL (32-36); Mean Corpuscular Volume 86.5 fL (80-94); Mean Platelet Vol. 9.3 fl (6.2-12.0); NRBC Flagged by Analyzer 0 % (0-5); Platelet Count 212 K/mm3 (150-450); RBC Distribution Width CV 11.7 % (11.6-14.6); RBC Distribution Width SD 36.8 fl (35.1-43.9); Red Blood Count 5.05 M/mm3 (4.6-6.2); White Blood Count 11.3 K/mm3 (4.4-11.0)
--- NOTE | 2025-03-27 17:25 | CT_ITS ---
PROCEDURE: BRAIN/HEAD WITHOUT CONTRAST; SPINE CERVICAL WITHOUT CONTRAS 03/27/2025 REASON FOR EXAM: TRAUMA TECHNIQUE: Procedure Code: CTBR; CTSPC Modality: CT Procedure: BRAIN/HEAD WITHOUT CONTRAST; SPINE CERVICAL WITHOUT CONTRAS Coronal and Sagittal reconstruction series were provided. One or more dose reduction techniques were used (e.g., Automated exposure control, adjustment of the mA and/or kV according to patient size, use of iterative reconstruction technique. COMPARISON: None available. FINDINGS: HEAD: There is no extra-axial or intra-axial intracranial hemorrhage. No mass effect or midline shift is seen. The ventricles, sulci, and cisterns are normal in size and shape for the patient's age. There is normal arreguin-white matter differentiation. The posterior fossa is grossly unremarkable. The skull is unremarkable. Visualized paranasal sinuses are clear. The mastoid air cells show normal translucency. C-SPINE: The cervical alignment is intact. No acute cervical spine fracture is identified. The vertebral body heights are intact. No suspicious osseous lesions are identified. The craniocervical junction appears intact. There is no prevertebral soft tissue swelling. Mild degenerate changes at C5- C6. No severe neural foraminal or spinal canal stenosis. The visualized lung apices are unremarkable. CT/Spine Cervical without Contras IMPRESSION: 1. No intracranial hemorrhage. No mass effect or midline shift. 2. No evidence of acute cervical spine fracture or malalignment. Reading Location: [facility]
--- NOTE | 2025-03-27 17:25 | CT_ITS ---
PROCEDURE: CTA HEAD AND NECK W/ CONTRAST 03/27/2025 REASON FOR EXAM: TRAUMA, R/O DISECTION TECHNIQUE: Procedure Code: CTCTA.HDNCK Modality: CT Procedure: CTA HEAD AND NECK W/ CONTRAST Multiplanar Sagittal and Coronal images were obtained. 3D post processing was performed. CONTRAST: Isovue 370 VOLUME: 75 mL One or more dose reduction techniques were used (e.g., Automated exposure control, adjustment of the mA and/or kV according to patient size, use of iterative reconstruction technique). RADIATION DOSE SUMMARY: DLP: 1978.56 mGycm COMPARISON: None. FINDINGS: CTA HEAD: Patent intracranial arterial vasculature. No large vessel occlusion, hemodynamically significant stenosis, saccular aneurysm, or vascular malformation identified. Dural venous sinuses appear patent. CTA NECK: Conventional aortic arch branching. Bilateral cervical carotid and codominant vertebral arteries are patent, normal in course and caliber. No aneurysm, dissection or acute injury. CT/CTA Head AND Neck W/ Contrast IMPRESSION: Normal CTA of the head and neck. Reading Location: [id number]
--- NOTE | 2025-03-27 17:25 | CT_ITS ---
PROCEDURE: BRAIN/HEAD WITHOUT CONTRAST; SPINE CERVICAL WITHOUT CONTRAS 03/27/2025 REASON FOR EXAM: TRAUMA TECHNIQUE: Procedure Code: CTBR; CTSPC Modality: CT Procedure: BRAIN/HEAD WITHOUT CONTRAST; SPINE CERVICAL WITHOUT CONTRAS Coronal and Sagittal reconstruction series were provided. One or more dose reduction techniques were used (e.g., Automated exposure control, adjustment of the mA and/or kV according to patient size, use of iterative reconstruction technique. COMPARISON: None available. FINDINGS: HEAD: There is no extra-axial or intra-axial intracranial hemorrhage. No mass effect or midline shift is seen. The ventricles, sulci, and cisterns are normal in size and shape for the patient's age. There is normal arreguin-white matter differentiation. The posterior fossa is grossly unremarkable. The skull is unremarkable. Visualized paranasal sinuses are clear. The mastoid air cells show normal translucency. C-SPINE: The cervical alignment is intact. No acute cervical spine fracture is identified. The vertebral body heights are intact. No suspicious osseous lesions are identified. The craniocervical junction appears intact. There is no prevertebral soft tissue swelling. Mild degenerate changes at C5- C6. No severe neural foraminal or spinal canal stenosis. The visualized lung apices are unremarkable. CT/Brain/Head without Contrast IMPRESSION: 1. No intracranial hemorrhage. No mass effect or midline shift. 2. No evidence of acute cervical spine fracture or malalignment. Reading [facility]
[2025-03-27 17:39] LABS: Alcohol, Blood (Medical)-Serum < 10.1 mg/dL (<=10.0); Magnesium 1.5 mg/dL (1.5-2.2)
[2025-03-27 17:41] LABS: Anion Gap 13 (5-15); BUN 11 mg/dL (4-19); BUN/Creat Ratio 10.7 RATIO (10-20); Calcium,Total 9.1 mg/dL (7.6-11.0); Carbon Dioxide 24.5 mmol/L (21.0-32.0); Chloride 101 mmol/L (98-108); Estimated Creatinine Clearance 114.08 ml/min (50-250); Glucose 136 mg/dL (70-99); Potassium 3.4 mmol/L (3.3-5.1)
[2025-03-27 18:33] LABS: Barbiturate Urine NEGATIVE (< 200 ng/mL); Benzodiazepine Urine NEGATIVE (< 200 ng/mL); PCP Urine NEGATIVE (< 25 ng/mL); THC Urine PRESUMPTIVE POSITIVE (< 50 ng/mL)
--- NOTE | 2025-03-27 20:57 | MRI_ITS ---
PROCEDURE: SPINE CERVICAL (ROUTINE) 03/27/2025 REASON FOR EXAM: TRAUMA, RULE OUT SPINAL CORD INJURY TECHNIQUE: Procedure Code: MRISPC Modality: MR Procedure: SPINE CERVICAL (ROUTINE) Multiplanar and multisequence images were obtained without IV contrast administration. COMPARISON: CT dated 03/27/2025. FINDINGS: No acute fracture or subluxation. [id number] disc narrowing is noted throughout the cervical spine, moderate at C3-4. Endplate edema is noted at C3-4. The remainder of the bone marrow signal is unremarkable. The cervical cord is normal in size and signal. The cervicomedullary junction and prevertebral soft tissues appear unremarkable. C2-3: No significant canal or neural foraminal narrowing. C3-4: Disc narrowing, a posterior disc bulge eccentric to the left, and bilateral uncovertebral spurring result in moderate narrowing of the canal to 7 mm and severe left and moderate right neural foraminal narrowing. There is also narrowing of the left anterolateral recess. C4-5: Disc narrowing, a posterior disc bulge, and bilateral uncovertebral spurring result in severe narrowing of the canal to 6 mm (AP), effacement of the cord, and severe bilateral neural foraminal narrowing. C5-6: A broad-based 3 mm posterior central disc protrusion contacts the ventral aspect of the cord, resulting in moderate narrowing of the canal to 7 mm (AP) in the midline. No significant neural foraminal narrowing. C6-7: Disc narrowing, a broad-based posterior disc bulge, and mild bilateral uncovertebral spurring result in severe narrowing of the canal to 6 mm (AP) and severe bilateral neural foraminal narrowing. C7-T1: Disc narrowing, a posterior disc bulge with a superimposed 3 mm right foraminal disc protrusion result in mild narrowing of the canal to 9 mm (AP), and moderate to severe right and mild left neural foraminal narrowing. MRI/Spine Cervical (Routine) IMPRESSION: No MR evidence of acute traumatic injury to the cervical spine. Moderate to severe cervical spondylosis, as described above. Reading Location: [facility]
--- NOTE | 2025-03-27 20:57 | MRI_ITS ---
PROCEDURE: SPINE THORACIC (ROUTINE) 03/27/2025 REASON FOR EXAM: TRAUMA, ASSESS FOR SPINAL CORD INJURY TECHNIQUE: Procedure Code: MRISPT Modality: MR Procedure: SPINE THORACIC (ROUTINE) Multiplanar and multisequence images were obtained. CONTRAST: VOLUME: mL FINDINGS: No acute fracture or subluxation. Mild disc narrowing is noted in the mid to lower thoracic spine. Small 2-3 mm posterior disc protrusions are noted at T7-8, T8-9, T9-10, and T11-12 mild effacement of the ventral aspect of the cord is noted at T9-10 and T11-12, without significant canal narrowing. Diffuse posterior epidural lipomatosis is noted throughout the thoracic spine. No significant neural foraminal narrowing throughout the thoracic spine. The bone marrow signal is unremarkable. The thoracic cord is normal in size and signal. The paraspinal musculature and soft tissues appear unremarkable. MRI/Spine Thoracic (Routine) IMPRESSION: Small posterior disc protrusions at T7-8, T8-9, T9-10, and T11-12. Mild efface ment of the ventral aspect of the cord at T9-10 and T11-12. Reading Location: [id number]
[2025-03-28 01:14] VITALS: BP 132/70; PULSE 79; RESP 18; TEMP 36.8; O2SAT 100
== END 2025-03-28 01:15 | disposition home or self-care (01) ==
PROVIDERS: Emergency Provider Surgery; Visit Provider Surgery
DX: S09.90XA Unspecified injury of head, initial encounter (principal); M48.02 Spinal stenosis, cervical region; M48.04 Spinal stenosis, thoracic region; R20.2 Paresthesia of skin; X58.XXXA Exposure to other specified factors, initial encounter
CPT/HCPCS: 70450; 70496; 70498; 72125; 72141; 72146; 80048; 80307; 82077; 83735; 85025; 96374; 99285; A4216